=== PATIENT | female | born 1940 | race Caucasian/White ===

== ENCOUNTER 2016-05-12 06:27 | Inpatient (IN) | payer MEDICARE, OTHER ==
[~2016-05-12] VITALS: Ht 152 cm; Wt 61.8 kg
[~2016-05-12 06:27] MED LIST: AMANTADINE HCL100 M1 PO; AMLODIPINE5 MG PO; ASPIRIN81 M1 PO; AUGMENTIN 500 M1 TAB PO; CALCIUM 500500 M2 PO; CALCIUM 600600 M2 PO; CIPRO500 MG PO; CIPROFLOXACIN500 MG PO; COMBIVENT1 ARO IH; FLAGYL500 MG PO; FLONASE0.05 MG/AC NS; FOSAMAX70 MG PO; LABETALOL100 MG PO; MEDROL DOSEPAK4 MG PO; METOPROLOL25 MG PO; NORVASC5 MG PO; NYSTATIN100000 U/M PO; OMEPRAZOLE20 M2 PO; PRINIVIL20 M1 PO; PRINIVIL20 MG PO; TESSALON PERLE100 M1 PO; THYROX PO; VICODIN ES 7501 TAB PO; VITAMIN D400 I1 PO; ZITHROMAX Z-PA250 MG PO; ZOCOR10 MG PO; [UNRECOGNIZED DRUG - OTHER] PO
[2016-05-12 06:37] VITALS: BP 124/59
[2016-05-12 07:00] VITALS: BP 117/66
[2016-05-12 07:35] LABS: BASO % 0.2 % (0.0-1.0); EOS # 0.1 10*3/uL (0.0-0.4); EOS % 0.3 % (1.0-4.0); HEMATOCRIT 48.4 % (37.0-47.0); HEMOGLOBIN 16.3 g/dl (12.0-16.0); IG # 0.1 10*3/uL (0.0-0.1); LYMPH # 1.5 10*3/uL (1.3-4.4); MEAN CELL VOLUME 88.8 fl (81.0-99.0); MEAN CORPUSCULAR HGB 29.9 pg (27.0-31.0); MEAN CORPUSCULAR HGB CONC 33.7 g/dl (33.0-37.0); MEAN PLATELET VOLUME 9.6 fl (9.6-12.3); MONO # 1.1 10*3/uL (0.1-1.0); MONO % 5.2 % (3.0-9.0); NEUT # 18.3 10*3/uL (2.3-7.9); NEUT % 86.8 % (47.0-73.0); PLATELET COUNT AUTOMATED 382 10*3/uL (130-400); RED BLOOD COUNT 5.45 10*6/uL (4.10-5.10); RED CELL DISTRI WIDTH 12.9 % (0-14.5); WHITE BLOOD COUNT 21.1 10*3/uL (4.8-10.8)
[2016-05-12 07:44] LABS: PROTHROMBIN TIME 10.5 SECONDS (9.0-12.4)
[2016-05-12 07:54] LABS: ALBUMIN 3.8 gm/dl (3.1-4.5); BILIRUBIN, TOTAL 0.5 mg/dl (0.2-1.0); C-REACTIVE PROTEIN 0.54 MG/DL (0-0.3); CKMB 1.1 ng/ml (0.5-3.6); MAGNESIUM 2.4 mg/dL (1.5-2.1); POTASSIUM 5.9 mmol/L (3.5-5.1); TOTAL PROTEIN 7.4 gm/dL (6.4-8.2); TROPONIN I 0.027 ng/ml (<0.5)
[2016-05-12 08:00] VITALS: BP 111/63
[2016-05-12 12:00] VITALS: BP 114/62
[2016-05-12 12:11] LABS: CPK 35 U/L (26-192); TROPONIN I 0.022 ng/ml (<0.5)
[2016-05-12 12:12] LABS: CKMB < 0.5 ng/ml (0.5-3.6)
[2016-05-12] MEDS ORDERED: VITAMIN D1000 IU PO (12:49)
[2016-05-12 16:00] VITALS: BP 116/49
[2016-05-12 18:10] LABS: CKMB 1.1 ng/ml (0.5-3.6); TROPONIN I 0.021 ng/ml (<0.5)
[2016-05-12 20:00] VITALS: BP 106/48
[2016-05-12 21:38] LABS: BILIRUBIN NEGATIVE (NEGATIVE); BLOOD NEGATIVE (NEGATIVE); CLARITY SL CLOUDY (CLEAR); COLOR YELLOW (YELLOW); GLUCOSE NEGATIVE (NEGATIVE); KETONE NEGATIVE (NEGATIVE); LEUKO ESTERASE TRACE (NEGATIVE); NITRITE NEGATIVE (NEGATIVE); PH 5.5 (5.0-9.0); PROTEIN NEGATIVE (NEGATIVE); SPECIFIC GRAVITY 1.025 (1.005-1.030); UROBILINOGEN 0.2 E.U./dl (0.2-1.0)
[2016-05-12 21:46] LABS: BACTERIA 2+; HYALINE CAST 15-20; RBC 0-2 rbc/hpf (0-2); URINE REFLEX COMMENT YES (NO)
[2016-05-13] VITALS: BP 121/61
[2016-05-13 00:42] LABS: CKMB 1.3 ng/ml (0.5-3.6); TROPONIN I 0.022 ng/ml (<0.5)
[2016-05-13 07:33] LABS: BASO % 0.4 % (0.0-1.0); EOS # 0.1 10*3/uL (0.0-0.4); EOS % 1.5 % (1.0-4.0); LYMPH # 3.4 10*3/uL (1.3-4.4); LYMPH % 38.2 % (27.0-41.0); MEAN CELL VOLUME 91.2 fl (81.0-99.0); MEAN CORPUSCULAR HGB 29.7 pg (27.0-31.0); MEAN CORPUSCULAR HGB CONC 32.5 g/dl (33.0-37.0); MEAN PLATELET VOLUME 9.9 fl (9.6-12.3); MONO % 11.7 % (3.0-9.0); NEUT # 4.3 10*3/uL (2.3-7.9); NEUT % 47.9 % (47.0-73.0); PLATELET COUNT AUTOMATED 295 10*3/uL (130-400); RED BLOOD COUNT 4.11 10*6/uL (4.10-5.10); RED CELL DISTRI WIDTH 13.2 % (0-14.5); WHITE BLOOD COUNT 8.9 10*3/uL (4.8-10.8)
[2016-05-13 07:34] LABS: HEMATOCRIT 37.5 % (37.0-47.0); HEMOGLOBIN 12.2 g/dl (12.0-16.0)
[2016-05-13 07:42] LABS: ALBUMIN 3.2 gm/dl (3.1-4.5); ALKALINE PHOSPHATASE 54 U/L (45-117); BILIRUBIN, TOTAL 0.6 mg/dl (0.2-1.0); BUN 18 mg/dl (7-24); CARBON DIOXIDE 22 mmol/L (21-32); CHLORIDE 109 mmol/L (98-107); EST GLOM FILT AFRICAN AMERICAN > 60 ml/min; GLUCOSE 89 mg/dL (65-99); PHOSPHOROUS 2.2 mg/dL (2.5-4.9); SGOT/AST 12 IU/L (3-35); SGPT/ALT 18 U/L (12-78); SODIUM 141 mmol/L (136-145); TOTAL PROTEIN 6.3 gm/dL (6.4-8.2)
[2016-05-13 07:55] LABS: PROTHROMBIN TIME 10.6 SECONDS (9.0-12.4)
[2016-05-13 08:00] VITALS: BP 128/50
[2016-05-13 08:17] LABS: POTASSIUM 3.6 mmol/L (3.5-5.1)
[2016-05-13 12:00] VITALS: BP 127/57
[2016-05-13 16:00] VITALS: BP 125/51
[2016-05-13 20:00] VITALS: BP 133/52
[2016-05-14] VITALS: BP 143/64
[2016-05-14 06:44] LABS: BASO % 0.3 % (0.0-1.0); EOS # 0.2 10*3/uL (0.0-0.4); EOS % 3.2 % (1.0-4.0); HEMATOCRIT 33.2 % (37.0-47.0); HEMOGLOBIN 10.9 g/dl (12.0-16.0); LYMPH # 2.2 10*3/uL (1.3-4.4); LYMPH % 32.3 % (27.0-41.0); MEAN CELL VOLUME 90.7 fl (81.0-99.0); MEAN CORPUSCULAR HGB 29.8 pg (27.0-31.0); MEAN CORPUSCULAR HGB CONC 32.8 g/dl (33.0-37.0); MEAN PLATELET VOLUME 9.5 fl (9.6-12.3); MONO # 0.9 10*3/uL (0.1-1.0); MONO % 13.7 % (3.0-9.0); NEUT # 3.5 10*3/uL (2.3-7.9); NEUT % 50.1 % (47.0-73.0); PLATELET COUNT AUTOMATED 243 10*3/uL (130-400); RED BLOOD COUNT 3.66 10*6/uL (4.10-5.10); RED CELL DISTRI WIDTH 12.9 % (0-14.5); WHITE BLOOD COUNT 6.9 10*3/uL (4.8-10.8)
[2016-05-14 07:17] LABS: CARBON DIOXIDE 24 mmol/L (21-32); CHLORIDE 111 mmol/L (98-107); EST GLOM FILT AFRICAN AMERICAN > 60 ml/min; GLUCOSE 96 mg/dL (65-99); MAGNESIUM 2.3 mg/dL (1.5-2.1); PHOSPHOROUS 1.9 mg/dL (2.5-4.9); POTASSIUM 3.7 mmol/L (3.5-5.1); SODIUM 145 mmol/L (136-145)
[2016-05-14 07:27] LABS: BUN 8 mg/dl (7-24)
[2016-05-14 08:00] VITALS: BP 143/57
[2016-05-14] MEDS ORDERED: METRONIDAZOLE500 M1 PO (12:54)
[2016-05-14] MEDS ORDERED: CIPROFLOXACIN500 M4 PO (12:54)
[2016-05-14] MEDS ORDERED: ZOFRAN4 MG PO (12:59)
== END 2016-05-14 14:15 | disposition home or self-care (01) | DRG 871 ==
LOC: ED 06:27 → EDHOLD 08:37 → 4E 08:37
PROVIDERS: Emergency Medicine; Family Medicine; Internal Medicine
DX: A41.9 Sepsis, unspecified organism (principal); N17.0 Acute kidney failure with tubular necrosis; E44.1 Mild protein-calorie malnutrition; R65.20 Severe sepsis without septic shock; K52.9 Noninfective gastroenteritis and colitis, unspecified; I10 Essential (primary) hypertension; E03.9 Hypothyroidism, unspecified; K21.9 Gastro-esophageal reflux disease without esophagitis; M85.80 Other specified disorders of bone density and structure, unspecified site; M47.816 Spondylosis without myelopathy or radiculopathy, lumbar region; R73.9 Hyperglycemia, unspecified; E83.41 Hypermagnesemia; M81.0 Age-related osteoporosis without current pathological fracture; E87.5 Hyperkalemia; Z88.1 Allergy status to other antibiotic agents; Z88.8 Allergy status to other drugs, medicaments and biological substances; Z79.82 Long term (current) use of aspirin; Z79.899 Other long term (current) drug therapy; Z68.25 Body mass index [BMI] 25.0-25.9, adult; Z98.890 Other specified postprocedural states; Z83.3 Family history of diabetes mellitus; Z82.49 Family history of ischemic heart disease and other diseases of the circulatory system; Z80.0 Family history of malignant neoplasm of digestive organs; Z82.5 Family history of asthma and other chronic lower respiratory diseases

== ENCOUNTER 2016-09-20 12:06 | Inpatient (IN) | payer MEDICARE, OTHER ==
[~2016-09-20] VITALS: Ht 152.4 cm; Wt 63.2 kg
--- NOTE | ~2016-09-20 | CON ---
[place], [place] REPORT OF CONSULTATION NAME: CARLY ARIAS [facility] #: [id number] UNIT #: [id number] ROOM: 520 DOCTOR: MARGARET LAYNEJACKSON BIRTHDATE: [birth year] DOS: 09/21/2016 HISTORY OF PRESENT ILLNESS: A 76-year-old patient who has presented with chief complaint of abdominal pain, cramps, history of colitis, abnormal CT scan of the abdomen which reveals extensive infectious or inflammatory ileitis. Lactic acid was 1.4. CBC: White blood cell was 18, H and H of 16 and 46, neutrophils 82. ileus. Comprehensive metabolic panel, GFR greater than 60. Electrolytes borderline normal. Liver function tests normal. C-reactive protein is slightly elevated at 0.79. CT scan of the chest, no acute process. Troponin was normal. Hemoglobin A1c 5.8. PAST MEDICAL HISTORY: Osteopenia, partial bowel obstruction, gastroesophageal reflux, degenerative joint disease, essential hypertension. PAST SURGICAL HISTORY: D and C, lens implant, cataract, hemorrhoidectomy. SOCIAL HISTORY: Nonsmoker, nonalcohol consumer. FAMILY HISTORY: Noncontributory. ALLERGIES: TO PROGESTIN, DOXYCYCLINE AND TETRACYCLINE. MEDICATIONS: List has been reviewed. REVIEW OF SYSTEMS: In general, HEENT: Denies double vision, blurred vision. RESPIRATORY: Denies shortness of breath. CARDIOVASCULAR: Denies acute chest pain. DIGESTIVE SYSTEM: Abdominal pain, cramp, diarrhea. PHYSICAL EXAMINATION: VITAL SIGNS: Stable. HEENT: Head normocephalic, nontraumatic. Mouth and buccal mucosa benign. NECK: Supple, no thyromegaly, no cervical lymphadenopathy. CHEST: Symmetric anatomy, equal expansion. No wheeze. No rhonchi. HEART: Normal sinus rhythm, no gallop, no murmur. ABDOMEN: Soft. No hepato-organomegaly. Bowel sounds present. No pulsatile mass. EXTREMITIES: No cyanosis, no pedal edema. NEUROLOGIC: Alert, oriented to time, place, person. LABORATORY DATA: Reviewed. Records reviewed. Data reviewed. IMPRESSION: Terminal ileitis, ruling out Crohn's, hypothyroidism, osteopenia, hyperglycemia, hypertension, gastroesophageal reflux disease. PLAN AND DISCUSSION: We are going to organize EGD colonoscopy and terminal ileoscopy. [place], [place] REPORT OF CONSULTATION NAME: CARLY ARIAS UNIT #: [id number] ROOM: 520 DOCTOR: MARGARET LAYNE,JACKSON BIRTHDATE: [birth year] JACKSON ORBLES MD CM:CONSTR:REPORT OF CONSULTATION 1045 09/22/16 0323 interface
--- NOTE | ~2016-09-20 | O ---
[place], [place] OPERATIVE NOTE NAME: CARLY ARIAS UNIT #: [id number] ROOM: 520 DOCTOR: JACKSON ROBLES MD BIRTHDATE: [birth year] DOS: The patient is a 76-year-old who has presented with chief complaint of abdominal pain, undergoing investigation. The patient with leukocytosis of 18,000 has been placed on Cipro and Flagyl and white blood cell has decreased and ileitis noticed. PROCEDURE: Today's procedure part of investigation is colonoscopy. PREMEDICATION: Versed and Diprivan. SCOPE: Olympus forward-viewing colonoscope 10L video. REPORT: After putting the patient in the left lateral position and after application of lubricant to the scope, the scope was introduced. Thereafter, under direct visualization, I advanced through the length of colon without difficulty. Diverticulosis scatteredly was noticed. The base of cecum explored, appendiceal orifice identified and photographed. Terminal ileum appears to be stenotic and negotiation of scope in the terminal ileum is impractical, scope was gradually withdrawn. The patient extubated, tolerated procedure well. IMPRESSION: Diverticulosis. PLAN AND DISCUSSION: We are going to continue with Cipro and Flagyl. We are going to start her on sulfasalazine 500 mg 2 tablets b.i.d. in addition to folic acid and clinically reassess. Course of antibiotics would be about 10 days on her and I am going to meanwhile organize a small bowel follow through for documentation of terminal ileitis. Diet is going to remain full liquid. Thank you very much indeed. [place], [place] OPERATIVE NOTE NAME: CARLY ARIAS UNIT #: [id number] ROOM: 520 DOCTOR: JACKSON ROBLES MD BIRTHDATE: [birth year] JACKSON ROBLES MD CM:OPRECORD:OPERATIVE NOTE 1148 11 JACKSON ROBLES MD 09/21/16 181 interface
[~2016-09-20 12:06] MED LIST changes: +CIPROFLOXACIN500 M4 PO; +METRONIDAZOLE500 M1 PO; +VITAMIN D1000 IU PO; +ZOFRAN4 MG PO
[2016-09-20 12:27] VITALS: BP 91/52
[2016-09-20 12:46] VITALS: BP 144/70
[2016-09-20 12:55] LABS: BASO # 0.1 10*3/uL (0.0-0.1); BASO % 0.3 % (0.0-1.0); EOS # 0.2 10*3/uL (0.0-0.4); EOS % 1.1 % (1.0-4.0); HEMATOCRIT 46.9 % (37.0-47.0); IG # 0.1 10*3/uL (0.0-0.1); LYMPH # 1.9 10*3/uL (1.3-4.4); LYMPH % 10.4 % (27.0-41.0); MEAN CORPUSCULAR HGB 29.7 pg (27.0-31.0); MEAN CORPUSCULAR HGB CONC 34.1 g/dl (33.0-37.0); MEAN PLATELET VOLUME 9.4 fl (9.6-12.3); MONO % 5.2 % (3.0-9.0); NEUT # 15.3 10*3/uL (2.3-7.9); NEUT % 82.7 % (47.0-73.0); PLATELET COUNT AUTOMATED 338 10*3/uL (130-400); RED BLOOD COUNT 5.39 10*6/uL (4.10-5.10); RED CELL DISTRI WIDTH 12.5 % (0-14.5); WHITE BLOOD COUNT 18.4 10*3/uL (4.8-10.8)
[2016-09-20 13:03] LABS: PROTHROMBIN TIME 10.2 SECONDS (9.0-12.4)
[2016-09-20 13:11] LABS: ALBUMIN 3.7 gm/dl (3.1-4.5); ALKALINE PHOSPHATASE 92 U/L (45-117); BILIRUBIN, TOTAL 0.4 mg/dl (0.2-1.0); BUN 22 mg/dl (7-24); C-REACTIVE PROTEIN 0.79 MG/DL (0-0.3); CARBON DIOXIDE 20 mmol/L (21-32); CHLORIDE 110 mmol/L (98-107); CPK 49 U/L (26-192); EST GLOM FILT AFRICAN AMERICAN > 60 ml/min; GLUCOSE 146 mg/dL (65-99); MAGNESIUM 2.2 mg/dL (1.5-2.1); POTASSIUM 5.3 mmol/L (3.5-5.1); SGOT/AST 26 IU/L (3-35); SGPT/ALT 27 U/L (12-78); SODIUM 140 mmol/L (136-145); TOTAL PROTEIN 7.3 gm/dL (6.4-8.2)
[2016-09-20 13:15] LABS: CKMB < 0.5 ng/ml (0.5-3.6)
[2016-09-20 13:30] VITALS: BP 124/61
[2016-09-20 14:47] VITALS: BP 131/53
[2016-09-20 16:00] VITALS: BP 119/57
[2016-09-20] MEDS ORDERED: FOSAMAX70 M1 PO (16:49)
[2016-09-20] MEDS ORDERED: CALCIUM 1,0001 EACH PO (16:50)
[2016-09-20 20:00] VITALS: BP 124/62
[2016-09-21] VITALS (9 sets, daily range): BP systolic 102–143; BP diastolic 48–77
[2016-09-21 06:43] LABS: BASO % 0.3 % (0.0-1.0); EOS # 0.1 10*3/uL (0.0-0.4); EOS % 0.7 % (1.0-4.0); LYMPH # 2.2 10*3/uL (1.3-4.4); LYMPH % 18.4 % (27.0-41.0); MEAN CELL VOLUME 88.7 fl (81.0-99.0); MEAN CORPUSCULAR HGB 30.2 pg (27.0-31.0); MEAN PLATELET VOLUME 9.7 fl (9.6-12.3); MONO # 1.1 10*3/uL (0.1-1.0); NEUT # 8.4 10*3/uL (2.3-7.9); NEUT % 71.4 % (47.0-73.0); PLATELET COUNT AUTOMATED 255 10*3/uL (130-400); RED BLOOD COUNT 3.98 10*6/uL (4.10-5.10); RED CELL DISTRI WIDTH 12.5 % (0-14.5); WHITE BLOOD COUNT 11.7 10*3/uL (4.8-10.8)
[2016-09-21 06:45] LABS: HEMATOCRIT 35.3 % (37.0-47.0)
[2016-09-21 07:30] LABS: CHLORIDE 110 mmol/L (98-107); SODIUM 140 mmol/L (136-145)
[2016-09-21 07:32] LABS: FOLIC ACID 19.4 ng/mL (>5.38); VITAMIN D, 25-HYDROXY 38.3 ng/mL (30-100)
[2016-09-21 07:44] LABS: HEMOGLOBIN A1c 5.8 % (4.8-5.6)
[2016-09-21 07:49] LABS: CARBON DIOXIDE 21 mmol/L (21-32); CHOLESTEROL 181 mg/dL (<200); EST GLOM FILT AFRICAN AMERICAN > 60 ml/min; FREE T4 1.44 ng/dl (0.76-1.46); GLUCOSE 110 mg/dL (65-99); HDL CHOLESTEROL 56 mg/dl (40-60); LDL CHOLESTEROL 102 mg/dL (9-159); THYROID STIM HORMONE (HS) 0.048 uIU/ml (0.358-4.75); TRIGLYCERIDES 115 mg/dl (<150); VLDL CHOLESTEROL 23 mg/dL (6-40)
[2016-09-21 07:50] LABS: BUN 12 mg/dl (7-24); POTASSIUM 3.8 mmol/L (3.5-5.1)
[2016-09-22] VITALS: BP 119/58
[2016-09-22 06:20] LABS: BASO % 0.3 % (0.0-1.0); EOS # 0.2 10*3/uL (0.0-0.4); HEMATOCRIT 31.9 % (37.0-47.0); HEMOGLOBIN 10.6 g/dl (12.0-16.0); LYMPH # 1.9 10*3/uL (1.3-4.4); LYMPH % 30.2 % (27.0-41.0); MEAN CELL VOLUME 88.6 fl (81.0-99.0); MEAN CORPUSCULAR HGB 29.4 pg (27.0-31.0); MEAN CORPUSCULAR HGB CONC 33.2 g/dl (33.0-37.0); MEAN PLATELET VOLUME 9.8 fl (9.6-12.3); MONO # 0.8 10*3/uL (0.1-1.0); MONO % 12.3 % (3.0-9.0); NEUT # 3.5 10*3/uL (2.3-7.9); PLATELET COUNT AUTOMATED 212 10*3/uL (130-400); RED CELL DISTRI WIDTH 12.5 % (0-14.5); WHITE BLOOD COUNT 6.4 10*3/uL (4.8-10.8)
[2016-09-22 08:00] VITALS: BP 118/91
[2016-09-22 12:00] VITALS: BP 123/59
[2016-09-22 16:00] VITALS: BP 119/68
[2016-09-22 20:00] VITALS: BP 137/56
[2016-09-23] VITALS: BP 127/58
[2016-09-23 06:06] LABS: BASO % 0.4 % (0.0-1.0); EOS # 0.3 10*3/uL (0.0-0.4); EOS % 4.4 % (1.0-4.0); HEMATOCRIT 31.7 % (37.0-47.0); HEMOGLOBIN 10.7 g/dl (12.0-16.0); LYMPH # 1.9 10*3/uL (1.3-4.4); LYMPH % 26.3 % (27.0-41.0); MEAN CELL VOLUME 87.6 fl (81.0-99.0); MEAN CORPUSCULAR HGB 29.6 pg (27.0-31.0); MEAN CORPUSCULAR HGB CONC 33.8 g/dl (33.0-37.0); MEAN PLATELET VOLUME 9.6 fl (9.6-12.3); MONO # 0.8 10*3/uL (0.1-1.0); MONO % 11.3 % (3.0-9.0); NEUT # 4.1 10*3/uL (2.3-7.9); NEUT % 57.3 % (47.0-73.0); PLATELET COUNT AUTOMATED 223 10*3/uL (130-400); RED BLOOD COUNT 3.62 10*6/uL (4.10-5.10); RED CELL DISTRI WIDTH 12.2 % (0-14.5); WHITE BLOOD COUNT 7.2 10*3/uL (4.8-10.8)
[2016-09-23 08:00] VITALS: BP 131/53
[2016-09-23 12:00] VITALS: BP 118/48
[2016-09-23 16:00] VITALS: BP 137/57
[2016-09-23 20:00] VITALS: BP 131/46
[2016-09-24] VITALS: BP 124/97
[2016-09-24 06:32] LABS: EST GLOM FILT AFRICAN AMERICAN > 60 ml/min
[2016-09-24 08:00] VITALS: BP 129/49
[2016-09-24 12:00] VITALS: BP 120/49
[2016-09-24 16:00] VITALS: BP 138/68
[2016-09-24 20:00] VITALS: BP 122/55
[2016-09-25 00:55] VITALS: BP 141/59
[2016-09-25 06:21] LABS: HEMATOCRIT 32.8 % (37.0-47.0); HEMOGLOBIN 11.2 g/dl (12.0-16.0); LYMPH % 10.2 % (27.0-41.0); MEAN CELL VOLUME 86.1 fl (81.0-99.0); MEAN CORPUSCULAR HGB 29.4 pg (27.0-31.0); MEAN CORPUSCULAR HGB CONC 34.1 g/dl (33.0-37.0); MEAN PLATELET VOLUME 9.8 fl (9.6-12.3); MONO # 0.5 10*3/uL (0.1-1.0); MONO % 5.4 % (3.0-9.0); PLATELET COUNT AUTOMATED 257 10*3/uL (130-400); RED BLOOD COUNT 3.81 10*6/uL (4.10-5.10); RED CELL DISTRI WIDTH 12.4 % (0-14.5); WHITE BLOOD COUNT 9.5 10*3/uL (4.8-10.8)
[2016-09-25 06:32] LABS: BUN 19 mg/dl (7-24); CARBON DIOXIDE 27 mmol/L (21-32); CHLORIDE 106 mmol/L (98-107); EST GLOM FILT AFRICAN AMERICAN > 60 ml/min; GLUCOSE 172 mg/dL (65-99); POTASSIUM 3.7 mmol/L (3.5-5.1); SODIUM 143 mmol/L (136-145)
[2016-09-25 08:00] VITALS: BP 122/64
[2016-09-25 12:00] VITALS: BP 142/59
[2016-09-25] MEDS ORDERED: FLAGYL500 MG PO (15:27)
[2016-09-25] MEDS ORDERED: CIPRO500 MG PO (15:27)
[2016-09-25 16:00] VITALS: BP 124/48
== END 2016-09-25 19:13 | disposition home or self-care (01) | DRG 872 ==
LOC: ED 12:06 → 5E 13:41 → EDHOLD 13:41 → 5E 13:58
PROVIDERS: Emergency Medicine; Internal Medicine; Internal Medicine Hospice and Palliative Medicine
PROC: 0DJD8ZZ Inspection of Lower Intestinal Tract, Via Natural or Artificial Opening Endoscopic (ICD-10-PCS; principal; 2016-09-20)
DX: A41.9 Sepsis, unspecified organism (principal); E86.0 Dehydration; E87.5 Hyperkalemia; E83.41 Hypermagnesemia; K52.9 Noninfective gastroenteritis and colitis, unspecified; R73.9 Hyperglycemia, unspecified; E03.9 Hypothyroidism, unspecified; I10 Essential (primary) hypertension; M85.89 Other specified disorders of bone density and structure, multiple sites; M47.816 Spondylosis without myelopathy or radiculopathy, lumbar region; Z96.1 Presence of intraocular lens; K21.9 Gastro-esophageal reflux disease without esophagitis; R73.02 Impaired glucose tolerance (oral); E83.51 Hypocalcemia; K57.90 Diverticulosis of intestine, part unspecified, without perforation or abscess without bleeding; Z98.42 Cataract extraction status, left eye; Z98.41 Cataract extraction status, right eye; Z80.0 Family history of malignant neoplasm of digestive organs; Z82.5 Family history of asthma and other chronic lower respiratory diseases; Z88.1 Allergy status to other antibiotic agents; Z88.8 Allergy status to other drugs, medicaments and biological substances; Z79.82 Long term (current) use of aspirin; Z79.899 Other long term (current) drug therapy

== ENCOUNTER 2016-10-31 15:18 | Emergency (ER) | payer MEDICARE ==
[~2016-10-31] VITALS: Ht 152.4 cm; Wt 60.8 kg
[~2016-10-31 15:18] MED LIST changes: +CALCIUM 1,0001 EACH PO; +FOSAMAX70 M1 PO
[2016-10-31 15:23] VITALS: BP 140/76
[2016-10-31] MEDS ORDERED: HYDROCODONE BIT1 T11 PO (17:23)
== END 2016-10-31 17:33 | disposition home or self-care (01) ==
LOC: ED 15:18
DX: S20.212A Contusion of left front wall of thorax, initial encounter (principal); Z79.82 Long term (current) use of aspirin; Z88.1 Allergy status to other antibiotic agents; Z88.8 Allergy status to other drugs, medicaments and biological substances; Z79.899 Other long term (current) drug therapy; W22.8XXA Striking against or struck by other objects, initial encounter; Y93.I9 Activity, other involving external motion; Y92.831 Amusement park as the place of occurrence of the external cause; Y99.9 Unspecified external cause status

== ENCOUNTER 2016-11-20 14:42 | Emergency (ER) | payer MEDICARE ==
[~2016-11-20] VITALS: Ht 152.4 cm; Wt 59.9 kg
[~2016-11-20 14:42] MED LIST changes: +HYDROCODONE BIT1 T11 PO
[2016-11-20 15:11] LABS: BASO % 0.4 % (0.0-1.0); EOS # 0.2 10*3/uL (0.0-0.4); EOS % 1.6 % (1.0-4.0); HEMOGLOBIN 13.7 g/dl (12.0-16.0); LYMPH # 2.7 10*3/uL (1.3-4.4); LYMPH % 23.9 % (27.0-41.0); MEAN CELL VOLUME 87.5 fl (81.0-99.0); MEAN CORPUSCULAR HGB CONC 34.3 g/dl (33.0-37.0); MEAN PLATELET VOLUME 9.3 fl (9.6-12.3); MONO # 0.8 10*3/uL (0.1-1.0); MONO % 7.5 % (3.0-9.0); NEUT # 7.4 10*3/uL (2.3-7.9); NEUT % 66.3 % (47.0-73.0); PLATELET COUNT AUTOMATED 268 10*3/uL (130-400); RED BLOOD COUNT 4.57 10*6/uL (4.10-5.10); RED CELL DISTRI WIDTH 12.5 % (0-14.5); WHITE BLOOD COUNT 11.2 10*3/uL (4.8-10.8)
[2016-11-20 15:28] LABS: ALBUMIN 3.4 gm/dl (3.1-4.5); ALKALINE PHOSPHATASE 99 U/L (45-117); BILIRUBIN, TOTAL 0.4 mg/dl (0.2-1.0); BUN 17 mg/dl (7-24); CARBON DIOXIDE 24 mmol/L (21-32); CHLORIDE 106 mmol/L (98-107); EST GLOM FILT AFRICAN AMERICAN > 60 ml/min; GLUCOSE 95 mg/dL (65-99); POTASSIUM 4.6 mmol/L (3.5-5.1); SGOT/AST 20 IU/L (3-35); SGPT/ALT 19 U/L (12-78); SODIUM 138 mmol/L (136-145); TOTAL PROTEIN 6.8 gm/dL (6.4-8.2)
[2016-11-20] MEDS ORDERED: ZOFRAN ODT4 MG SL (17:17)
[2016-11-20 17:37] VITALS: BP 124/70
== END 2016-11-20 17:38 | disposition home or self-care (01) ==
LOC: ED 14:42
PROVIDERS: Registered Nurse
DX: K52.9 Noninfective gastroenteritis and colitis, unspecified (principal); I10 Essential (primary) hypertension; Z88.1 Allergy status to other antibiotic agents; Z88.8 Allergy status to other drugs, medicaments and biological substances; Z79.899 Other long term (current) drug therapy; Z79.82 Long term (current) use of aspirin

== ENCOUNTER → 2016-12-20 | Outpatient (CLI) | payer MEDICARE ==
[~2016-12-20] MED LIST changes: +ZOFRAN ODT4 MG SL
== END | disposition home or self-care (01) ==
LOC: CARD 14:46
DX: I48.91 Unspecified atrial fibrillation (principal); I48.0 Paroxysmal atrial fibrillation

== ENCOUNTER 2017-04-27 11:17 | Inpatient (IN) | payer MEDICARE ==
[~2017-04-27] VITALS: Ht 152.4 cm; Wt 63.1 kg
[2017-04-27] VITALS (7 sets, daily range): BP systolic 113–144; BP diastolic 39–56
[~2017-04-27 11:17] MED LIST changes: -CALCIUM 1,0001 EACH PO; +VITAMIN D-32000 UNI1 PO
[2017-04-27 12:31] LABS: BASO % 0.2 % (0.0-1.0); EOS # 0.1 10*3/uL (0.0-0.4); EOS % 0.4 % (1.0-4.0); HEMATOCRIT 44.6 % (37.0-47.0); HEMOGLOBIN 15.6 g/dl (12.0-16.0); LYMPH # 1.5 10*3/uL (1.3-4.4); LYMPH % 7.9 % (27.0-41.0); MEAN CELL VOLUME 85.1 fl (81.0-99.0); MEAN CORPUSCULAR HGB 29.8 pg (27.0-31.0); MEAN PLATELET VOLUME 9.7 fl (9.6-12.3); MONO # 0.6 10*3/uL (0.1-1.0); MONO % 3.1 % (3.0-9.0); NEUT # 16.2 10*3/uL (2.3-7.9); PLATELET COUNT AUTOMATED 313 10*3/uL (130-400); RED BLOOD COUNT 5.24 10*6/uL (4.10-5.10); RED CELL DISTRI WIDTH 12.1 % (0-14.5); WHITE BLOOD COUNT 18.4 10*3/uL (4.8-10.8)
[2017-04-27 12:38] LABS: ACT PARTIAL THROMBO TIME 22.3 SECONDS (20.8-31.5)
[2017-04-27 12:48] LABS: ALBUMIN 3.5 gm/dl (3.1-4.5); ALKALINE PHOSPHATASE 97 U/L (45-117); BUN 26 mg/dl (7-24); CHLORIDE 102 mmol/L (98-107); LIPASE 114 U/L (73-393); POTASSIUM 4.5 mmol/L (3.5-5.1); SGOT/AST 22 IU/L (3-35); SGPT/ALT 24 U/L (12-78); SODIUM 136 mmol/L (136-145); TOTAL PROTEIN 7.4 gm/dL (6.4-8.2)
[2017-04-27 13:03] LABS: TROPONIN I 0.066 ng/ml (<0.045)
[2017-04-27 14:06] LABS: BILIRUBIN NEGATIVE (NEGATIVE); BLOOD NEGATIVE (NEGATIVE); CLARITY SL CLOUDY (CLEAR); COLOR YELLOW (YELLOW); GLUCOSE NEGATIVE (NEGATIVE); KETONE NEGATIVE (NEGATIVE); LEUKO ESTERASE NEGATIVE (NEGATIVE); NITRITE NEGATIVE (NEGATIVE); UROBILINOGEN 0.2 E.U./dl (0.2-1.0)
[2017-04-27 14:15] LABS: BACTERIA TRACE; HYALINE CAST 51-100; MUCOUS 1+
[2017-04-27] MEDS ORDERED: SYNTHROID137 MCG PO (16:48)
[2017-04-27] MEDS ORDERED: METOPROLOL SUCC50 M1 PO (16:49)
[2017-04-27] MEDS ORDERED: RA FISH OIL 1,1 EAC2 PO (18:06)
[2017-04-27] MEDS ORDERED: LIPITOR10 MG PO (18:06)
[2017-04-27] MEDS ORDERED: XARE15TA PO (18:14)
[2017-04-28] VITALS: BP 127/47
[2017-04-28 05:50] LABS: BUN 18 mg/dl (7-24); CHLORIDE 105 mmol/L (98-107); CHOLESTEROL 141 mg/dL (<200); CREATININE 0.75 mg/dL (0.55-1.02); SODIUM 140 mmol/L (136-145); TRIGLYCERIDES 145 mg/dl (<150); VLDL CHOLESTEROL 29 mg/dL (6-40)
[2017-04-28 05:52] LABS: HDL CHOLESTEROL 57 mg/dl (40-60); LDL CHOLESTEROL 55 mg/dL (9-159)
[2017-04-28 05:53] LABS: POTASSIUM 3.4 mmol/L (3.5-5.1)
[2017-04-28 05:56] LABS: BASO % 0.3 % (0.0-1.0); EOS # 0.2 10*3/uL (0.0-0.4); EOS % 2.3 % (1.0-4.0); LYMPH # 2.2 10*3/uL (1.3-4.4); MEAN CELL VOLUME 87.9 fl (81.0-99.0); MEAN CORPUSCULAR HGB 30.2 pg (27.0-31.0); MEAN CORPUSCULAR HGB CONC 34.3 g/dl (33.0-37.0); MEAN PLATELET VOLUME 9.5 fl (9.6-12.3); MONO # 1.1 10*3/uL (0.1-1.0); NEUT % 66.1 % (47.0-73.0); PLATELET COUNT AUTOMATED 232 10*3/uL (130-400); RED BLOOD COUNT 3.88 10*6/uL (4.10-5.10); RED CELL DISTRI WIDTH 12.4 % (0-14.5); TROPONIN I 0.063 ng/ml (<0.045); WHITE BLOOD COUNT 10.5 10*3/uL (4.8-10.8)
[2017-04-28 05:58] LABS: HEMATOCRIT 34.1 % (37.0-47.0); HEMOGLOBIN 11.7 g/dl (12.0-16.0); THYROID STIM HORMONE (HS) 0.031 uIU/ml (0.358-4.75)
[2017-04-28 08:00] VITALS: BP 102/48
[2017-04-28] MEDS ORDERED: VITAMIN D-32000 UNI1 PO (11:31)
[2017-04-28 12:00] VITALS: BP 100/42
[2017-04-28] MEDS ORDERED: HYDR25T PO (12:38)
[2017-04-28 16:00] VITALS: BP 119/42
[2017-04-28 20:00] VITALS: BP 123/55
[2017-04-29] VITALS: BP 126/50
[2017-04-29 06:52] LABS: BASO % 0.5 % (0.0-1.0); EOS # 0.4 10*3/uL (0.0-0.4); EOS % 4.6 % (1.0-4.0); HEMATOCRIT 34.1 % (37.0-47.0); HEMOGLOBIN 11.4 g/dl (12.0-16.0); LYMPH # 2.4 10*3/uL (1.3-4.4); LYMPH % 27.9 % (27.0-41.0); MEAN CELL VOLUME 87.9 fl (81.0-99.0); MEAN CORPUSCULAR HGB 29.4 pg (27.0-31.0); MEAN CORPUSCULAR HGB CONC 33.4 g/dl (33.0-37.0); MEAN PLATELET VOLUME 9.9 fl (9.6-12.3); MONO # 0.9 10*3/uL (0.1-1.0); MONO % 10.2 % (3.0-9.0); NEUT # 4.9 10*3/uL (2.3-7.9); NEUT % 56.7 % (47.0-73.0); PLATELET COUNT AUTOMATED 220 10*3/uL (130-400); RED BLOOD COUNT 3.88 10*6/uL (4.10-5.10); RED CELL DISTRI WIDTH 12.4 % (0-14.5); WHITE BLOOD COUNT 8.6 10*3/uL (4.8-10.8)
[2017-04-29 06:56] LABS: BUN 11 mg/dl (7-24); CHLORIDE 107 mmol/L (98-107); CREATININE 0.67 mg/dL (0.55-1.02); PHOSPHOROUS 2.2 mg/dL (2.5-4.9); SODIUM 140 mmol/L (136-145)
[2017-04-29 08:00] VITALS: BP 112/38
[2017-04-29 12:00] VITALS: BP 97/38
[2017-04-29] MEDS ORDERED: FLAGYL500 MG PO (13:27)
[2017-04-29] MEDS ORDERED: ZOFRAN4 MG PO (13:27)
[2017-04-29] MEDS ORDERED: CIPRO500 MG PO (13:27)
== END 2017-04-29 14:25 | disposition home or self-care (01) | DRG 392 ==
LOC: ED 11:17 → EDHOLD 14:33 → 4E 14:48
PROVIDERS: Emergency Medicine; Student in an Organized Health Care Education/Training Program
DX: K52.9 Noninfective gastroenteritis and colitis, unspecified (principal); E83.41 Hypermagnesemia; E86.0 Dehydration; I48.0 Paroxysmal atrial fibrillation; I10 Essential (primary) hypertension; K21.9 Gastro-esophageal reflux disease without esophagitis; M19.90 Unspecified osteoarthritis, unspecified site; M47.9 Spondylosis, unspecified; M85.80 Other specified disorders of bone density and structure, unspecified site; Z98.42 Cataract extraction status, left eye; Z98.41 Cataract extraction status, right eye; Z80.0 Family history of malignant neoplasm of digestive organs; Z88.2 Allergy status to sulfonamides; Z88.1 Allergy status to other antibiotic agents; Z83.6 Family history of other diseases of the respiratory system; Z83.3 Family history of diabetes mellitus; Z82.49 Family history of ischemic heart disease and other diseases of the circulatory system; Z79.82 Long term (current) use of aspirin; Z79.899 Other long term (current) drug therapy; Z72.89 Other problems related to lifestyle

== ENCOUNTER → 2017-05-09 | Outpatient (CLI) | payer MEDICARE ==
[~2017-05-09] MED LIST changes: +HYDR25T PO; +LIPITOR10 MG PO; +METOPROLOL SUCC50 M1 PO; +RA FISH OIL 1,1 EAC2 PO; +SYNTHROID137 MCG PO; +XARE15TA PO
== END | disposition home or self-care (01) ==
LOC: MAMMO 08:00
DX: Z12.31 Encounter for screening mammogram for malignant neoplasm of breast (principal); Z13.820 Encounter for screening for osteoporosis; M81.0 Age-related osteoporosis without current pathological fracture; N95.9 Unspecified menopausal and perimenopausal disorder; Z82.62 Family history of osteoporosis

== ENCOUNTER 2017-10-09 20:53 | Inpatient (IN) | payer MEDICARE ==
[~2017-10-09] VITALS: Ht 152.4 cm; Wt 62.4 kg
[2017-10-09] MEDS ORDERED: METOPROLOL SUCC25 M2 PO (21:16)
[2017-10-09] MEDS ORDERED: LEVOTHYROXINE137 MCG PO (21:17)
[2017-10-09 21:25] LABS: BASO % 0.4 % (0.0-1.0); EOS # 0.4 10*3/uL (0.0-0.4); EOS % 4.2 % (1.0-4.0); HEMATOCRIT 36.4 % (37.0-47.0); HEMOGLOBIN 12.5 g/dl (12.0-16.0); MEAN CELL VOLUME 87.7 fl (81.0-99.0); MEAN CORPUSCULAR HGB 30.1 pg (27.0-31.0); MEAN CORPUSCULAR HGB CONC 34.3 g/dl (33.0-37.0); MEAN PLATELET VOLUME 9.6 fl (9.6-12.3); MONO # 1.2 10*3/uL (0.1-1.0); MONO % 12.8 % (3.0-9.0); NEUT # 4.5 10*3/uL (2.3-7.9); NEUT % 49.4 % (47.0-73.0); PLATELET COUNT AUTOMATED 236 10*3/uL (130-400); RED BLOOD COUNT 4.15 10*6/uL (4.10-5.10); RED CELL DISTRI WIDTH 12.4 % (0-14.5)
[2017-10-09] MEDS ORDERED: ALENDRONATE SOD70 M1 PO (21:26)
[2017-10-09 21:37] LABS: ACT PARTIAL THROMBO TIME 25.7 SECONDS (20.8-31.5)
[2017-10-09 21:43] LABS: ALBUMIN 3.7 gm/dl (3.1-4.5); ALKALINE PHOSPHATASE 99 U/L (45-117); BUN 11 mg/dl (7-24); CHLORIDE 106 mmol/L (98-107); POTASSIUM 3.9 mmol/L (3.5-5.1); SGOT/AST 27 IU/L (3-35); SGPT/ALT 27 U/L (12-78); SODIUM 138 mmol/L (136-145); TOTAL PROTEIN 7.6 gm/dL (6.4-8.2)
[2017-10-09 21:46] LABS: TROPONIN I 0.049 ng/ml (<0.045)
[2017-10-09 22:22] LABS: BILIRUBIN NEGATIVE (NEGATIVE); BLOOD NEGATIVE (NEGATIVE); CLARITY CLEAR (CLEAR); COLOR YELLOW (YELLOW); GLUCOSE NEGATIVE (NEGATIVE); KETONE NEGATIVE (NEGATIVE); LEUKO ESTERASE NEGATIVE (NEGATIVE); NITRITE NEGATIVE (NEGATIVE); SPECIFIC GRAVITY <= 1.005 (1.005-1.030); UROBILINOGEN 0.2 E.U./dl (0.2-1.0)
[2017-10-09 22:29] LABS: WBC 0-2 wbc/hpf (0-5)
[2017-10-09 23:00] VITALS: BP 154/51
[2017-10-10 00:05] VITALS: BP 140/64
[2017-10-10 00:25] VITALS: BP 162/50
[2017-10-10 02:00] VITALS: BP 162/50
[2017-10-10 06:15] LABS: BASO # 0.1 10*3/uL (0.0-0.1); BASO % 0.7 % (0.0-1.0); EOS # 0.4 10*3/uL (0.0-0.4); EOS % 5.6 % (1.0-4.0); HEMOGLOBIN 12.2 g/dl (12.0-16.0); LYMPH # 3.2 10*3/uL (1.3-4.4); LYMPH % 41.2 % (27.0-41.0); MEAN CORPUSCULAR HGB 29.8 pg (27.0-31.0); MEAN CORPUSCULAR HGB CONC 33.9 g/dl (33.0-37.0); MEAN PLATELET VOLUME 9.9 fl (9.6-12.3); MONO # 1.1 10*3/uL (0.1-1.0); MONO % 14.4 % (3.0-9.0); NEUT # 2.9 10*3/uL (2.3-7.9); PLATELET COUNT AUTOMATED 229 10*3/uL (130-400); RED BLOOD COUNT 4.09 10*6/uL (4.10-5.10); RED CELL DISTRI WIDTH 12.4 % (0-14.5); WHITE BLOOD COUNT 7.6 10*3/uL (4.8-10.8)
[2017-10-10 06:35] LABS: BUN 15 mg/dl (7-24); CHLORIDE 103 mmol/L (98-107); CHOLESTEROL 197 mg/dL (<200); CREATININE 0.87 mg/dL (0.55-1.02); HDL CHOLESTEROL 47 mg/dl (40-60); LDL CHOLESTEROL 108 mg/dL (9-159); PHOSPHOROUS 3.8 mg/dL (2.5-4.9); POTASSIUM 3.8 mmol/L (3.5-5.1); SODIUM 140 mmol/L (136-145); TRIGLYCERIDES 209 mg/dl (<150); VLDL CHOLESTEROL 42 mg/dL (6-40)
[2017-10-10 06:42] LABS: THYROID STIM HORMONE (HS) 0.005 uIU/ml (0.358-4.75)
[2017-10-10 07:43] LABS: VITAMIN D, 25-HYDROXY 39.9 ng/mL (30-100)
[2017-10-10 08:00] VITALS: BP 156/53
[2017-10-10] MEDS ORDERED: BETAMETHASONE DIPROPIONATE 0.05% T (10:35)
[2017-10-10 12:00] VITALS: BP 115/49
== END 2017-10-10 15:31 | disposition home or self-care (01) | DRG 607 ==
LOC: ED 20:53 → 5E 22:58 → EDHOLD 22:58 → 5E 23:54
PROVIDERS: Internal Medicine Nephrology; Physician Assistant
DX: L25.9 Unspecified contact dermatitis, unspecified cause (principal); I48.0 Paroxysmal atrial fibrillation; I11.9 Hypertensive heart disease without heart failure; E83.41 Hypermagnesemia; R21 Rash and other nonspecific skin eruption; K21.9 Gastro-esophageal reflux disease without esophagitis; E78.5 Hyperlipidemia, unspecified; R00.1 Bradycardia, unspecified; R73.9 Hyperglycemia, unspecified; R74.8 Abnormal levels of other serum enzymes; E66.3 Overweight; M47.816 Spondylosis without myelopathy or radiculopathy, lumbar region; R60.9 Edema, unspecified; Z96.1 Presence of intraocular lens; Z88.2 Allergy status to sulfonamides; Z88.8 Allergy status to other drugs, medicaments and biological substances; Z79.899 Other long term (current) drug therapy; Z90.89 Acquired absence of other organs; Z98.42 Cataract extraction status, left eye; Z98.41 Cataract extraction status, right eye; Z83.3 Family history of diabetes mellitus; Z82.49 Family history of ischemic heart disease and other diseases of the circulatory system; Z80.0 Family history of malignant neoplasm of digestive organs; Z83.6 Family history of other diseases of the respiratory system; Z84.1 Family history of disorders of kidney and ureter; Z68.26 Body mass index [BMI] 26.0-26.9, adult

== ENCOUNTER 2018-02-04 10:58 | Emergency (ER) | payer MEDICARE ==
[~2018-02-04] VITALS: Ht 152.4 cm; Wt 61.7 kg
[~2018-02-04 10:58] MED LIST changes: +ALENDRONATE SOD70 M1 PO; +BETAMETHASONE DIPROPIONATE 0.05% T; +LEVOTHYROXINE137 MCG PO; +METOPROLOL SUCC25 M2 PO
[2018-02-04 11:28] LABS: BASO % 0.5 % (0.0-1.0); EOS # 0.4 10*3/uL (0.0-0.4); EOS % 4.6 % (1.0-4.0); HEMATOCRIT 40.1 % (37.0-47.0); HEMOGLOBIN 13.7 g/dl (12.0-16.0); LYMPH # 2.3 10*3/uL (1.3-4.4); LYMPH % 27.1 % (27.0-41.0); MEAN CELL VOLUME 88.3 fl (81.0-99.0); MEAN CORPUSCULAR HGB 30.2 pg (27.0-31.0); MEAN CORPUSCULAR HGB CONC 34.2 g/dl (33.0-37.0); MEAN PLATELET VOLUME 9.3 fl (9.6-12.3); MONO # 0.8 10*3/uL (0.1-1.0); MONO % 9.6 % (3.0-9.0); NEUT % 58.1 % (47.0-73.0); PLATELET COUNT AUTOMATED 271 10*3/uL (130-400); RED BLOOD COUNT 4.54 10*6/uL (4.10-5.10); WHITE BLOOD COUNT 8.6 10*3/uL (4.8-10.8)
[2018-02-04 11:43] LABS: ALBUMIN 3.8 gm/dl (3.1-4.5); CREATININE 1.22 mg/dL (0.55-1.02); POTASSIUM 4.2 mmol/L (3.5-5.1); TOTAL PROTEIN 8.2 gm/dL (6.4-8.2)
[2018-02-04 11:46] LABS: BILIRUBIN NEGATIVE (NEGATIVE); BLOOD NEGATIVE (NEGATIVE); CLARITY CLEAR (CLEAR); COLOR STRAW (YELLOW); GLUCOSE NEGATIVE (NEGATIVE); KETONE NEGATIVE (NEGATIVE); LEUKO ESTERASE NEGATIVE (NEGATIVE); NITRITE NEGATIVE (NEGATIVE); PH 6.5 (5.0-9.0); UROBILINOGEN 0.2 E.U./dl (0.2-1.0)
[2018-02-04 12:02] LABS: WBC 0-2 wbc/hpf (0-5)
[2018-02-04 14:38] VITALS: BP 152/53
== END 2018-02-04 14:49 | disposition home or self-care (01) ==
LOC: ED 10:58
PROVIDERS: Emergency Medicine
DX: R53.1 Weakness (principal); R63.1 Polydipsia; I48.91 Unspecified atrial fibrillation; Z98.890 Other specified postprocedural states; Z79.899 Other long term (current) drug therapy; Z88.1 Allergy status to other antibiotic agents

== ENCOUNTER → 2018-03-27 | Outpatient (CLI) | payer MEDICARE | LOC: RESCLI 01:06 | DX: E03.9 Hypothyroidism, unspecified (principal); M81.0 Age-related osteoporosis without current pathological fracture; I48.0 Paroxysmal atrial fibrillation; E55.9 Vitamin D deficiency, unspecified; E78.00 Pure hypercholesterolemia, unspecified; I11.0 Hypertensive heart disease with heart failure; I50.42 Chronic combined systolic (congestive) and diastolic (congestive) heart failure; I25.10 Atherosclerotic heart disease of native coronary artery without angina pectoris; Z79.899 Other long term (current) drug therapy; Z88.8 Allergy status to other drugs, medicaments and biological substances ==

== ENCOUNTER → 2018-04-07 | Outpatient (CLI) | payer MEDICARE ==
[2018-04-07 10:52] LABS: BASO # 0.1 10*3/uL (0.0-0.1); BASO % 0.7 % (0.0-1.0); EOS # 0.3 10*3/uL (0.0-0.4); EOS % 3.8 % (1.0-4.0); HEMATOCRIT 40.6 % (37.0-47.0); HEMOGLOBIN 13.7 g/dl (12.0-16.0); LYMPH # 2.3 10*3/uL (1.3-4.4); LYMPH % 31.9 % (27.0-41.0); MEAN CELL VOLUME 91.4 fl (81.0-99.0); MEAN CORPUSCULAR HGB 30.9 pg (27.0-31.0); MEAN CORPUSCULAR HGB CONC 33.7 g/dl (33.0-37.0); MEAN PLATELET VOLUME 9.3 fl (9.6-12.3); MONO # 0.8 10*3/uL (0.1-1.0); MONO % 11.2 % (3.0-9.0); NEUT # 3.7 10*3/uL (2.3-7.9); NEUT % 52.1 % (47.0-73.0); PLATELET COUNT AUTOMATED 248 10*3/uL (130-400); RED BLOOD COUNT 4.44 10*6/uL (4.10-5.10); RED CELL DISTRI WIDTH 12.9 % (0-14.5); WHITE BLOOD COUNT 7.1 10*3/uL (4.8-10.8)
[2018-04-07 11:10] LABS: ALBUMIN 3.6 gm/dl (3.1-4.5); ALKALINE PHOSPHATASE 98 U/L (45-117); BUN 22 mg/dl (7-24); CHLORIDE 104 mmol/L (98-107); CHOLESTEROL 190 mg/dL (<200); CREATININE 1.03 mg/dL (0.55-1.02); HDL CHOLESTEROL 67 mg/dl (40-60); LDL CHOLESTEROL 95 mg/dL (9-159); POTASSIUM 4.1 mmol/L (3.5-5.1); SGOT/AST 26 IU/L (3-35); SGPT/ALT 22 U/L (12-78); SODIUM 136 mmol/L (136-145); TOTAL PROTEIN 7.5 gm/dL (6.4-8.2); TRIGLYCERIDES 142 mg/dl (<150); VLDL CHOLESTEROL 28 mg/dL (6-40)
[2018-04-07 11:33] LABS: FREE T4 1.35 ng/dl (0.76-1.46)
[2018-04-07 11:53] LABS: VITAMIN D, 25-HYDROXY 43.9 ng/mL (30-100)
== END | disposition home or self-care (01) ==
LOC: LAB 10:18
PROVIDERS: Student in an Organized Health Care Education/Training Program
DX: E03.9 Hypothyroidism, unspecified (principal); I10 Essential (primary) hypertension; E55.9 Vitamin D deficiency, unspecified; E78.00 Pure hypercholesterolemia, unspecified; Z79.899 Other long term (current) drug therapy

== ENCOUNTER → 2018-07-01 | Outpatient (CLI) | payer MEDICARE | END | disposition home or self-care (01) | LOC: RESCLI 04:30 | DX: I48.0 Paroxysmal atrial fibrillation (principal); E03.9 Hypothyroidism, unspecified; M81.0 Age-related osteoporosis without current pathological fracture; I11.0 Hypertensive heart disease with heart failure; I50.42 Chronic combined systolic (congestive) and diastolic (congestive) heart failure; E55.9 Vitamin D deficiency, unspecified; E78.00 Pure hypercholesterolemia, unspecified; I25.10 Atherosclerotic heart disease of native coronary artery without angina pectoris; E66.3 Overweight; E78.5 Hyperlipidemia, unspecified; R00.1 Bradycardia, unspecified; Z79.899 Other long term (current) drug therapy; Z79.82 Long term (current) use of aspirin; Z88.0 Allergy status to penicillin; Z88.8 Allergy status to other drugs, medicaments and biological substances ==

== ENCOUNTER → 2018-10-23 | Outpatient (CLI) | payer MEDICARE ==
[2018-10-23 11:38] LABS: BASO # 0.1 10*3/uL (0.0-0.1); BASO % 0.6 % (0.0-1.0); EOS # 0.3 10*3/uL (0.0-0.4); EOS % 3.7 % (1.0-4.0); HEMATOCRIT 37.4 % (37.0-47.0); HEMOGLOBIN 12.4 g/dl (12.0-16.0); LYMPH % 23.6 % (27.0-41.0); MEAN CELL VOLUME 93.3 fl (81.0-99.0); MEAN CORPUSCULAR HGB 30.9 pg (27.0-31.0); MEAN CORPUSCULAR HGB CONC 33.2 g/dl (33.0-37.0); MEAN PLATELET VOLUME 10.2 fl (9.6-12.3); MONO # 0.8 10*3/uL (0.1-1.0); MONO % 9.2 % (3.0-9.0); NEUT # 5.3 10*3/uL (2.3-7.9); NEUT % 62.7 % (47.0-73.0); PLATELET COUNT AUTOMATED 241 10*3/uL (130-400); RED BLOOD COUNT 4.01 10*6/uL (4.10-5.10); RED CELL DISTRI WIDTH 12.5 % (0-14.5); WHITE BLOOD COUNT 8.5 10*3/uL (4.8-10.8)
[2018-10-23 11:58] LABS: ALBUMIN 3.7 gm/dl (3.1-4.5); ALKALINE PHOSPHATASE 101 U/L (45-117); BUN 20 mg/dl (7-24); CHLORIDE 106 mmol/L (98-107); CHOLESTEROL 174 mg/dL (<200); CREATININE 1.01 mg/dL (0.55-1.02); HDL CHOLESTEROL 67 mg/dl (40-60); LDL CHOLESTEROL 79 mg/dL (9-159); POTASSIUM 3.9 mmol/L (3.5-5.1); SGOT/AST 20 IU/L (3-35); SGPT/ALT 20 U/L (12-78); SODIUM 141 mmol/L (136-145); TOTAL PROTEIN 7.5 gm/dL (6.4-8.2); TRIGLYCERIDES 140 mg/dl (<150); VLDL CHOLESTEROL 28 mg/dL (6-40)
[2018-10-23 12:22] LABS: FREE T4 1.41 ng/dl (0.76-1.46)
[2018-10-23 12:48] LABS: VITAMIN D, 25-HYDROXY 39.3 ng/mL (30-100)
== END | disposition home or self-care (01) ==
LOC: RESCLI 01:17
PROVIDERS: Internal Medicine Nephrology
DX: E03.9 Hypothyroidism, unspecified (principal); M81.0 Age-related osteoporosis without current pathological fracture; I48.0 Paroxysmal atrial fibrillation; E55.9 Vitamin D deficiency, unspecified; E78.00 Pure hypercholesterolemia, unspecified; I11.0 Hypertensive heart disease with heart failure; I50.42 Chronic combined systolic (congestive) and diastolic (congestive) heart failure; I25.10 Atherosclerotic heart disease of native coronary artery without angina pectoris; Z79.899 Other long term (current) drug therapy

== ENCOUNTER → 2019-01-16 | Outpatient (CLI) | payer MEDICARE | END | disposition home or self-care (01) | LOC: RESCLI 00:37 | DX: E03.9 Hypothyroidism, unspecified (principal); M81.0 Age-related osteoporosis without current pathological fracture; K57.92 Diverticulitis of intestine, part unspecified, without perforation or abscess without bleeding; I49.9 Cardiac arrhythmia, unspecified; I48.0 Paroxysmal atrial fibrillation; E55.9 Vitamin D deficiency, unspecified; I11.0 Hypertensive heart disease with heart failure; I50.42 Chronic combined systolic (congestive) and diastolic (congestive) heart failure; I48.2 Chronic atrial fibrillation; I25.10 Atherosclerotic heart disease of native coronary artery without angina pectoris; E78.00 Pure hypercholesterolemia, unspecified; K21.9 Gastro-esophageal reflux disease without esophagitis; Z79.899 Other long term (current) drug therapy ==

== ENCOUNTER → 2019-03-03 | Outpatient (CLI) | payer MEDICARE ==
[~2019-03-03] MED LIST changes: +COREG12.5 M1 PO; +LASIX20 MG PO; +PROPAFENONE HY150 MG PO
== END | disposition home or self-care (01) ==
LOC: RESCLI 13:39
DX: E78.00 Pure hypercholesterolemia, unspecified (principal); L28.2 Other prurigo; E03.9 Hypothyroidism, unspecified; M81.0 Age-related osteoporosis without current pathological fracture; I11.0 Hypertensive heart disease with heart failure; I50.42 Chronic combined systolic (congestive) and diastolic (congestive) heart failure; I48.20 Chronic atrial fibrillation, unspecified; E55.9 Vitamin D deficiency, unspecified; K21.9 Gastro-esophageal reflux disease without esophagitis; I25.10 Atherosclerotic heart disease of native coronary artery without angina pectoris; Z79.899 Other long term (current) drug therapy; Z88.8 Allergy status to other drugs, medicaments and biological substances

== ENCOUNTER 2019-03-12 15:33 | Inpatient (IN) | payer MEDICARE ==
[~2019-03-12] VITALS: Ht 162.6 cm; Wt 62.3 kg
[~2019-03-12 15:33] MED LIST changes: -COREG12.5 M1 PO; -LASIX20 MG PO; -PROPAFENONE HY150 MG PO
[2019-03-12 16:01] LABS: BASO % 0.3 % (0.0-1.0); EOS # 0.5 10*3/uL (0.0-0.4); HEMOGLOBIN 14.9 g/dl (12.0-16.0); LYMPH # 2.6 10*3/uL (1.3-4.4); LYMPH % 23.4 % (27.0-41.0); MEAN CORPUSCULAR HGB 30.8 pg (27.0-31.0); MEAN CORPUSCULAR HGB CONC 33.1 g/dl (33.0-37.0); MEAN PLATELET VOLUME 9.5 fl (9.6-12.3); MONO # 1.2 10*3/uL (0.1-1.0); MONO % 10.2 % (3.0-9.0); NEUT # 6.9 10*3/uL (2.3-7.9); NEUT % 61.7 % (47.0-73.0); PLATELET COUNT AUTOMATED 253 10*3/uL (130-400); RED BLOOD COUNT 4.84 10*6/uL (4.10-5.10); RED CELL DISTRI WIDTH 12.2 % (0-14.5); WHITE BLOOD COUNT 11.2 10*3/uL (4.8-10.8)
[2019-03-12 16:12] LABS: ACT PARTIAL THROMBO TIME 29.9 SECONDS (20.0-32.1); INTERNATIONAL NORM RATIO 1.1 (2.0-3.5)
[2019-03-12 16:20] LABS: ALBUMIN 3.5 gm/dl (3.1-4.5); ALKALINE PHOSPHATASE 99 U/L (45-117); BUN 26 mg/dl (7-24); CHLORIDE 98 mmol/L (98-107); CREATININE 1.36 mg/dL (0.55-1.02); POTASSIUM 4.1 mmol/L (3.5-5.1); SGOT/AST 25 IU/L (3-35); SGPT/ALT 22 U/L (12-78); SODIUM 135 mmol/L (136-145); TOTAL PROTEIN 7.5 gm/dL (6.4-8.2)
[2019-03-12 16:23] LABS: TROPONIN I < 0.015 ng/ml (<0.045)
[2019-03-12 17:00] VITALS: BP 123/52
[2019-03-12 17:45] VITALS: BP 128/44
[2019-03-12 19:05] VITALS: BP 118/48
--- NOTE | 2019-03-12 19:52 | NUR ---
PATIENT IS RESTING IN BED WITH NO COMPLAINTS. STILL WAITING FOR ROOM ON FLOOR FOR THE PATIENT.
[2019-03-12 20:00] VITALS: BP 146/47; BP 151/69
[2019-03-12 20:45] VITALS: BP 146/47
--- NOTE | 2019-03-12 20:45 | NUR ---
A 78, admitted to 5E, under the services of ADAM Roche DO with a diagnosis of CHEST PAIN RULE OUT ACUTE MYOCARDIAL INFARCTION, ABDOMINAL PAIN. Chief complaint is CHEST PAIN. Patient arrived via stretcher from ER. Monitor applied. Initial assessment completed. Vital signs taken and recorded. ADAM ROCHE DO notified of admission to the unit. Orders received. See assessment for past medical history, medications and allergies. Patient and/or family oriented to unit. [address] visitation policy reviewed. Clothing/patient valuable form completed. CALL LIGHT WITHIN REACH. PATIENT RESTING IN BED WITH NO COMPLAINTS AT THIS TIME. JULIANNE MCRAE
[2019-03-12] MEDS ORDERED: LASIX20 MG PO (21:45)
[2019-03-12] MEDS ORDERED: COREG12.5 M1 PO (21:45)
[2019-03-12] MEDS ORDERED: PROPAFENONE HY150 MG PO (21:46)
--- NOTE | 2019-03-12 22:12 | NUR ---
NOTIFIED RESIDENT OF COMPLETED MED REC.
[2019-03-13] VITALS: BP 127/44
--- NOTE | 2019-03-13 01:27 | NUR ---
Patient resting quietly with no c/o discomfort. Respirations easy and regular. Vital signs stable. No overt distress. CALL LIGHT WITHIN REACH. JULIANNE MCRAE
--- NOTE | 2019-03-13 01:55 | NUR ---
24 HR chart check completed.
[2019-03-13 06:26] LABS: BASO % 0.3 % (0.0-1.0); EOS # 0.4 10*3/uL (0.0-0.4); EOS % 3.7 % (1.0-4.0); HEMATOCRIT 39.9 % (37.0-47.0); HEMOGLOBIN 13.3 g/dl (12.0-16.0); LYMPH # 2.2 10*3/uL (1.3-4.4); LYMPH % 18.6 % (27.0-41.0); MEAN CELL VOLUME 91.7 fl (81.0-99.0); MEAN CORPUSCULAR HGB 30.6 pg (27.0-31.0); MEAN CORPUSCULAR HGB CONC 33.3 g/dl (33.0-37.0); MEAN PLATELET VOLUME 9.6 fl (9.6-12.3); MONO # 1.3 10*3/uL (0.1-1.0); MONO % 10.7 % (3.0-9.0); NEUT # 7.8 10*3/uL (2.3-7.9); NEUT % 66.4 % (47.0-73.0); PLATELET COUNT AUTOMATED 225 10*3/uL (130-400); RED BLOOD COUNT 4.35 10*6/uL (4.10-5.10); RED CELL DISTRI WIDTH 12.3 % (0-14.5); WHITE BLOOD COUNT 11.8 10*3/uL (4.8-10.8)
--- NOTE | 2019-03-13 06:47 | NUR ---
NOTIFIED DR ROBLES OF CONSULT. ORDERS RECIEVED TO KEEP THE PATIENT NPO AFTER STRESS TEST. DR ROBLES ALSO WANTS NOTIFIED OF THE RESULTS FROM STRESS TEST BECAUSE HE WOULD LIKE TO DO AN EGD FOLLOWING RESULTS OF STRESS TEST.
[2019-03-13 07:00] LABS: CREATININE 1.18 mg/dL (0.55-1.02); PHOSPHOROUS 2.7 mg/dL (2.5-4.9); POTASSIUM 3.7 mmol/L (3.5-5.1)
[2019-03-13 07:12] LABS: FREE T4 1.2 ng/dl (0.76-1.46); THYROID STIM HORMONE (HS) 8.8 uIU/ml (0.358-4.75)
[2019-03-13 08:00] VITALS: BP 126/58
--- NOTE | 2019-03-13 09:00 | NUR ---
Analytics Leader in to talk to patient. Patient states lives at home with alone. There are fw steps in the home. Physician: [facility] Home health services: none Patient's level of ADLs: INDEPENDENT Patient has working utilities: all working DME: none Follow-up physician's appointment after d/c: will be made by hospitalist nurse director upon discharge Does patient want to access PORTAL?: no Discharge plan discussed with patient, she lives at home alone, she is independent in adls and ambulation, drives she states she will return home when medically stable and denies any home needs. ALDEN JIMÉNEZ
--- NOTE | 2019-03-13 10:41 | NUR ---
INFORMED SIGNED CONSENT OBTAINED FOR LEXISCAN STRESS TEST WITH DR PASCUAL. RESTING EKG NSR HR 64 BP 124/58. PULSE OX 97% LUNGS CLEAR. PT COMPLETED ONE MINUTE OF A LEXISCAN PROTOCOL WITH PT RECEIVING LEXISCAN 0.4 MG IV OVER 10 SEC[address] ARRHYTHMI[address] OR [address] CHANGES. PT C/O CHEST HEAVINESS WITH INJECTION. LAST RECOVERY HR OF 85 BP 120/64. PT IN STABLE CONDITION, AWAITING NUCLEAR IMAGES. PT REMAINS NPO!!!
[2019-03-13 12:00] VITALS: BP 103/55
--- NOTE | 2019-03-13 12:10 | NUR ---
ZOFRAN GIVEN PER PATIENT REQUEST FOR NAUSEA.
--- NOTE | 2019-03-13 13:00 | NUR ---
PATIENT SLEEPING. NO SIGNS OF DISTRESS. ZOFRAN EFFECTIVE.
--- NOTE | 2019-03-13 14:03 | NUR ---
PATIENT SLEEPING. NO SIGNS OF DISTRESS NOTED.
[2019-03-13 16:00] VITALS: BP 119/50
[2019-03-13 20:00] VITALS: BP 110/49
--- NOTE | 2019-03-13 20:00 | NUR ---
AAOX3 RESTING IN BED. PT. VOICES NO C/O AT THIS TIME. CALL LIGHT WITHIN REACH.
[2019-03-14] VITALS: BP 99/54
--- NOTE | 2019-03-14 02:30 | NUR ---
PT.'S HEART RATE IN THE 40'S. CHECKED ON PATIENT & PLACED NEW LEADS ON. PT. IS ASYMPTOMATIC. VOICES NO C/O; WILL CONTINUE TO MONITOR.
[2019-03-14 06:32] LABS: BASO % 0.3 % (0.0-1.0); EOS # 0.5 10*3/uL (0.0-0.4); EOS % 4.6 % (1.0-4.0); HEMATOCRIT 37.6 % (37.0-47.0); HEMOGLOBIN 12.4 g/dl (12.0-16.0); LYMPH % 29.1 % (27.0-41.0); MEAN CELL VOLUME 91.9 fl (81.0-99.0); MEAN CORPUSCULAR HGB 30.3 pg (27.0-31.0); MEAN PLATELET VOLUME 9.6 fl (9.6-12.3); MONO # 1.1 10*3/uL (0.1-1.0); MONO % 11.1 % (3.0-9.0); NEUT # 5.6 10*3/uL (2.3-7.9); NEUT % 54.6 % (47.0-73.0); PLATELET COUNT AUTOMATED 212 10*3/uL (130-400); RED BLOOD COUNT 4.09 10*6/uL (4.10-5.10); RED CELL DISTRI WIDTH 12.1 % (0-14.5); WHITE BLOOD COUNT 10.3 10*3/uL (4.8-10.8)
[2019-03-14 06:49] LABS: CREATININE 1.21 mg/dL (0.55-1.02); POTASSIUM 3.7 mmol/L (3.5-5.1)
--- NOTE | 2019-03-14 08:00 | NUR ---
IN TO ROOM. PATIENT AWAKE, ALERT AND ORIENTED. NO STATED COMPLAINTS. PT WAS SEEN WALKING HALLWAYS PREVIOUSLY THIS MORNING. STEADY GAIT ASSESSED. NO S/S OF DISTRESS, PAIN OR SOB NOTED. MANUAL BLOOD PRESSURE OBTAINED. DR. OLSON NOTIFIED OF RESULT. BED IN LOWEST LOCKED POSITION, CALL LIGHT WITHIN REACH.
[2019-03-14 08:22] VITALS: BP 96/42
--- NOTE | 2019-03-14 09:45 | NUR ---
MANUAL BLOOD PRESSURE OBTAINED. DR. OLSON NOTIFIED OF RESULT OF 100/42. ORDERED TO HOLD BLOOD PRESSURE MEDICATIONS AT THIS TIME. NO S/S OF DISTRESS. PT HAS NO STATED COMPLAINTS. OTHER VITALS STABLE. BED IN LOWEST LOCKED POSITION AND CALL LIGHT WITHIN REACH.
--- NOTE | 2019-03-14 10:00 | NUR ---
FAMILY IN ROOM. REQUESTED TO SPEAK WITH DOCTOR. DR. OLSON NOTIFIED.
--- NOTE | 2019-03-14 10:15 | NUR ---
ARRIVED ON SHIFT, INTRODUCED TO PATIENT, BEDSIDE REPORT RECEIVED, NO NEEDS VOICED AT THIS TIME, WHITE BOARD UPDATED.
[2019-03-14 12:00] VITALS: BP 130/52
--- NOTE | 2019-03-14 15:01 | NUR ---
PATIENT AWAKE, ALERT OR ORIENTED. NO STATED COMPLAINTS AT THIS TIME. NO S/S OF DISTRESS OR SOB NOTED. DENIES PAIN. RESPIRATIONS EASY AND REGULAR. BED IN LOWEST LOCKED POSITION AND CALL LIGHT WITHIN REACH AND ENCOURAGED.
[2019-03-14 16:00] VITALS: BP 130/47
[2019-03-14 17:14] VITALS: BP 98/40
--- NOTE | 2019-03-14 17:17 | NUR ---
PT'S MANUAL BP IS 98/42. DR. OLSON NOTIFIED. INSTRUCTED TO HOLD BP MEDS AT THIS TIME.
[2019-03-14 20:00] VITALS: BP 123/48
--- NOTE | 2019-03-14 20:40 | NUR ---
24 HR chart check completed.
[2019-03-15] VITALS: BP 102/49
[2019-03-15 06:49] LABS: BUN 16 mg/dl (7-24); CHLORIDE 104 mmol/L (98-107); CREATININE 1.02 mg/dL (0.55-1.02); POTASSIUM 3.4 mmol/L (3.5-5.1); SODIUM 138 mmol/L (136-145)
[2019-03-15 08:00] VITALS: BP 124/52
[2019-03-15 11:44] VITALS: BP 131/46
--- NOTE | 2019-03-15 13:06 | NUR ---
Patient resting quietly with no c/o discomfort. Respirations easy and regular. Vital signs stable. No overt distress. JULIANNE MCRAE
--- NOTE | 2019-03-15 14:54 | NUR ---
DR PASCUAL IN HOUSE. HE IS AWARE OF THE CONSULT.
[2019-03-15 15:33] VITALS: BP 114/76
--- NOTE | 2019-03-15 19:15 | NUR ---
ARRIVED ON SHIFT, INTRODUCED TO PATIENT, BEDSIDE REPORT RECEIVED, NO NEEDS VOICED AT THIS TIME. WHITE BOARD UPDATED.
--- NOTE | 2019-03-15 22:09 | NUR ---
24 HR chart check completed.
[2019-03-16] VITALS: BP 99/49
--- NOTE | 2019-03-16 00:31 | NUR ---
Patient sleeping. Respirations relaxed and easy. Siderails up x 2. [place] on, bed in low position, call light within reach. ESTEBAN HUANG
--- NOTE | 2019-03-16 06:29 | NUR ---
SPOKE WITH NURSE CRANE FROM [facility] REVIEWED PATIENTS HISTORY, AND NURSE TO NURSE GIVEN.
--- NOTE | 2019-03-16 07:20 | NUR ---
Discharge instructions reviewed with patient, Patient receptive and verbalizes understanding. Follow-up care arranged. Written instructions given to [facility], MONITOR REMOVED, IV LEFT HAND IN PLACE. ESTEBAN HUANG
== END 2019-03-16 07:20 | disposition other institution (70) | DRG 205 ==
LOC: ED 15:33 → 5E 17:16 → EDHOLD 17:16 → 5E 20:11
PROVIDERS: Emergency Medicine; Internal Medicine; ADMIT Internal Medicine
PROC: 3E073KZ Introduction of Other Diagnostic Substance into Coronary Artery, Percutaneous Approach (ICD-10-PCS; principal; 2019-03-13)
PROC: 4A02XM4 Measurement of Cardiac Total Activity, External Approach (ICD-10-PCS; principal; 2019-03-13)
DX: M94.0 Chondrocostal junction syndrome [Tietze] (principal); N17.0 Acute kidney failure with tubular necrosis; E87.1 Hypo-osmolality and hyponatremia; I48.0 Paroxysmal atrial fibrillation; R10.84 Generalized abdominal pain; K21.9 Gastro-esophageal reflux disease without esophagitis; R73.9 Hyperglycemia, unspecified; D72.829 Elevated white blood cell count, unspecified; E83.41 Hypermagnesemia; R00.1 Bradycardia, unspecified; R06.82 Tachypnea, not elsewhere classified; I25.9 Chronic ischemic heart disease, unspecified; E66.01 Morbid (severe) obesity due to excess calories; I11.9 Hypertensive heart disease without heart failure; I34.0 Nonrheumatic mitral (valve) insufficiency; Z96.1 Presence of intraocular lens; E78.5 Hyperlipidemia, unspecified; M47.896 Other spondylosis, lumbar region; Z80.0 Family history of malignant neoplasm of digestive organs; Z84.1 Family history of disorders of kidney and ureter; Z82.5 Family history of asthma and other chronic lower respiratory diseases; Z84.89 Family history of other specified conditions; Z88.1 Allergy status to other antibiotic agents; Z88.8 Allergy status to other drugs, medicaments and biological substances; Z79.899 Other long term (current) drug therapy; Z79.01 Long term (current) use of anticoagulants; Z68.23 Body mass index [BMI] 23.0-23.9, adult

== ENCOUNTER → 2019-03-12 | Outpatient (CLI) | payer MEDICARE | END | disposition home or self-care (01) | LOC: RESCLI 01:12 | DX: Z23 Encounter for immunization (principal); E03.9 Hypothyroidism, unspecified; E78.00 Pure hypercholesterolemia, unspecified; M81.0 Age-related osteoporosis without current pathological fracture; K57.92 Diverticulitis of intestine, part unspecified, without perforation or abscess without bleeding; I49.9 Cardiac arrhythmia, unspecified; E55.9 Vitamin D deficiency, unspecified; I11.0 Hypertensive heart disease with heart failure; I50.42 Chronic combined systolic (congestive) and diastolic (congestive) heart failure; I48.20 Chronic atrial fibrillation, unspecified; I25.10 Atherosclerotic heart disease of native coronary artery without angina pectoris; K21.9 Gastro-esophageal reflux disease without esophagitis; M19.90 Unspecified osteoarthritis, unspecified site ==

== ENCOUNTER → 2019-04-30 | Outpatient (CLI) | payer MEDICARE ==
[~2019-04-30] MED LIST changes: +ASPIRIN ADULT L81 M2 PO; +CARVEDILOL6.25 MG PO; +COREG12.5 M1 PO; +LASIX20 MG PO; +PLAVIX75 M1 PO; +PROPAFENONE HC150 MG PO; +PROPAFENONE HY150 MG PO
== END | disposition home or self-care (01) ==
LOC: RESCLI 00:59
DX: I11.0 Hypertensive heart disease with heart failure (principal); I50.42 Chronic combined systolic (congestive) and diastolic (congestive) heart failure; E03.9 Hypothyroidism, unspecified; M81.0 Age-related osteoporosis without current pathological fracture; K57.92 Diverticulitis of intestine, part unspecified, without perforation or abscess without bleeding; I49.9 Cardiac arrhythmia, unspecified; I48.0 Paroxysmal atrial fibrillation; E55.9 Vitamin D deficiency, unspecified; E78.00 Pure hypercholesterolemia, unspecified; I48.20 Chronic atrial fibrillation, unspecified; I25.10 Atherosclerotic heart disease of native coronary artery without angina pectoris; K21.9 Gastro-esophageal reflux disease without esophagitis; I25.118 Atherosclerotic heart disease of native coronary artery with other forms of angina pectoris; Z87.19 Personal history of other diseases of the digestive system; Z79.899 Other long term (current) drug therapy; Z88.8 Allergy status to other drugs, medicaments and biological substances

== ENCOUNTER 2019-05-07 13:06 | Inpatient (IN) | payer MEDICARE ==
[~2019-05-07] VITALS: Ht 152.4 cm; Wt 63.3 kg
[2019-05-07] VITALS (19 sets, daily range): BP systolic 101–209; BP diastolic 42–99
[~2019-05-07 13:06] MED LIST changes: -ASPIRIN ADULT L81 M2 PO; -CARVEDILOL6.25 MG PO; -PLAVIX75 M1 PO; -PROPAFENONE HC150 MG PO
[2019-05-07 14:17] LABS: BASO # 0.1 10*3/uL (0.0-0.1); BASO % 0.5 % (0.0-1.0); EOS # 0.4 10*3/uL (0.0-0.4); HEMATOCRIT 44.2 % (37.0-47.0); HEMOGLOBIN 14.3 g/dl (12.0-16.0); LYMPH # 1.7 10*3/uL (1.3-4.4); LYMPH % 12.8 % (27.0-41.0); MEAN CELL VOLUME 93.4 fl (81.0-99.0); MEAN CORPUSCULAR HGB 30.2 pg (27.0-31.0); MEAN CORPUSCULAR HGB CONC 32.4 g/dl (33.0-37.0); MEAN PLATELET VOLUME 9.6 fl (9.6-12.3); MONO # 0.8 10*3/uL (0.1-1.0); NEUT # 10.3 10*3/uL (2.3-7.9); NEUT % 77.4 % (47.0-73.0); PLATELET COUNT AUTOMATED 291 10*3/uL (130-400); RED BLOOD COUNT 4.73 10*6/uL (4.10-5.10); RED CELL DISTRI WIDTH 12.9 % (0-14.5); WHITE BLOOD COUNT 13.3 10*3/uL (4.8-10.8)
[2019-05-07 14:27] LABS: ACT PARTIAL THROMBO TIME 30.2 SECONDS (20.0-32.1)
[2019-05-07 14:36] LABS: ALBUMIN 3.9 gm/dl (3.1-4.5); CREATININE 1.33 mg/dL (0.55-1.02); TOTAL PROTEIN 7.8 gm/dL (6.4-8.2); TROPONIN I 0.016 ng/ml (<0.045)
[2019-05-07 16:05] LABS: BILIRUBIN NEGATIVE (NEGATIVE); BLOOD NEGATIVE (NEGATIVE); CLARITY SL CLOUDY (CLEAR); COLOR YELLOW (YELLOW); GLUCOSE NEGATIVE (NEGATIVE); KETONE NEGATIVE (NEGATIVE); LEUKO ESTERASE NEGATIVE (NEGATIVE); NITRITE NEGATIVE (NEGATIVE); PH 7.5 (5.0-9.0); UROBILINOGEN 0.2 E.U./dl (0.2-1.0)
--- NOTE | 2019-05-07 16:38 | NUR ---
MULTIPLE ATTEMPTS TO START AN IV.
--- NOTE | 2019-05-07 17:13 | NUR ---
MULTIPLE ATTEMPTS BY THREE MORE NURSES TO GAIN IV ACCESS. PHYSICIAN AWARE.
--- NOTE | 2019-05-07 18:34 | NUR ---
PT TO CT. CONDITION STABLE.
--- NOTE | 2019-05-07 19:00 | NUR ---
PROVIDED PT WITH MEAL TRAY. NO COMPLAINTS AT THIS TIME. FAMILY AT BEDSIDE. CALL DANIELLE HAN.
[2019-05-07] MEDS ORDERED: PLAVIX75 M1 PO (20:15)
--- NOTE | 2019-05-07 21:00 | NUR ---
DR. BOYD AWARE OF PATIENT CONSULT. WILL CALL IN AM WITH ORDERS
--- NOTE | 2019-05-07 21:35 | NUR ---
DAUGHTER TOOK PTS PURSE HOME WITH HER.
--- NOTE | 2019-05-07 23:50 | NUR ---
REPORT RECEIVED FROM RAVI BAKER. PT RESTING QUIETLY IN BED. CALL LIGHT IN REACH. VSS. NSR/SB ON MONITOR. FAMILY HAS LEFT FOR THE EVENING. WILL CONTINUE TO MONITOR
[2019-05-08] VITALS (7 sets, daily range): BP systolic 106–150; BP diastolic 42–70
--- NOTE | 2019-05-08 03:23 | NUR ---
PATIENT IS RESTING IN BED AT THIS TIME. VITALS WNL.
--- NOTE | 2019-05-08 06:11 | NUR ---
PATIENT IS RESTING IN BED WITH NO ISSUES NOTED AT THIS TIME,
--- NOTE | 2019-05-08 07:04 | NUR ---
REPORT RECIEVED FROM CHIQUI QUEZADA RN.
--- NOTE | 2019-05-08 07:26 | NUR ---
PT RESTING IN BED WITH NO SIGNS OF ACUTE DISTRESS. PT IS NOW UP TO BATHROOM. BED IS IN LOW POSITION. CALL LEIJA WITHIN REACH. WILL CONTINUE TO MONITOR.
[2019-05-08 09:13] LABS: BASO # 0.1 10*3/uL (0.0-0.1); BASO % 0.6 % (0.0-1.0); EOS # 0.4 10*3/uL (0.0-0.4); EOS % 4.6 % (1.0-4.0); HEMATOCRIT 41.7 % (37.0-47.0); HEMOGLOBIN 13.3 g/dl (12.0-16.0); LYMPH # 2.4 10*3/uL (1.3-4.4); MEAN CELL VOLUME 93.3 fl (81.0-99.0); MEAN CORPUSCULAR HGB 29.8 pg (27.0-31.0); MEAN CORPUSCULAR HGB CONC 31.9 g/dl (33.0-37.0); MEAN PLATELET VOLUME 9.6 fl (9.6-12.3); MONO # 0.7 10*3/uL (0.1-1.0); MONO % 9.2 % (3.0-9.0); NEUT # 4.4 10*3/uL (2.3-7.9); NEUT % 55.5 % (47.0-73.0); PLATELET COUNT AUTOMATED 260 10*3/uL (130-400); RED BLOOD COUNT 4.47 10*6/uL (4.10-5.10); RED CELL DISTRI WIDTH 12.8 % (0-14.5); WHITE BLOOD COUNT 7.9 10*3/uL (4.8-10.8)
[2019-05-08 09:25] LABS: CREATININE 1.15 mg/dL (0.55-1.02); PHOSPHOROUS 2.6 mg/dL (2.5-4.9); POTASSIUM 4.2 mmol/L (3.5-5.1)
[2019-05-09] VITALS: BP 140/50
--- NOTE | 2019-05-09 03:48 | NUR ---
24 HR chart check completed.
[2019-05-09 04:00] VITALS: BP 120/58
[2019-05-09 08:00] VITALS: BP 138/60
[2019-05-09] MEDS ORDERED: PROPAFENONE HC150 MG PO (10:52)
[2019-05-09] MEDS ORDERED: CARVEDILOL6.25 MG PO (10:52)
[2019-05-09] MEDS ORDERED: ASPIRIN ADULT L81 M2 PO (10:52)
--- NOTE | 2019-05-09 12:36 | NUR ---
KORINA DISCHARGED TO HOME.
== END 2019-05-09 12:36 | disposition home or self-care (01) | DRG 304 ==
LOC: ED 13:06 → 4E 16:51 → EDHOLD 16:51 → 4E 05-08 07:55
PROVIDERS: Emergency Medicine; Student in an Organized Health Care Education/Training Program; ADMIT Internal Medicine
DX: I16.1 Hypertensive emergency (principal); N17.0 Acute kidney failure with tubular necrosis; K21.9 Gastro-esophageal reflux disease without esophagitis; D72.829 Elevated white blood cell count, unspecified; E83.41 Hypermagnesemia; I12.9 Hypertensive chronic kidney disease with stage 1 through stage 4 chronic kidney disease, or unspecified chronic kidney disease; N18.3 Chronic kidney disease, stage 3 (moderate); R73.9 Hyperglycemia, unspecified; I48.0 Paroxysmal atrial fibrillation; E78.5 Hyperlipidemia, unspecified; I25.10 Atherosclerotic heart disease of native coronary artery without angina pectoris; G89.29 Other chronic pain; M54.9 Dorsalgia, unspecified; Z96.1 Presence of intraocular lens; Z80.0 Family history of malignant neoplasm of digestive organs; Z95.5 Presence of coronary angioplasty implant and graft; Z83.6 Family history of other diseases of the respiratory system; Z88.1 Allergy status to other antibiotic agents; Z88.8 Allergy status to other drugs, medicaments and biological substances; Z79.899 Other long term (current) drug therapy; Z98.42 Cataract extraction status, left eye; Z98.41 Cataract extraction status, right eye

== ENCOUNTER 2019-07-08 12:39 | Emergency (ER) | payer MEDICARE ==
[~2019-07-08] VITALS: Ht 152.4 cm; Wt 61.7 kg
[~2019-07-08 12:39] MED LIST changes: +ASPIRIN ADULT L81 M2 PO; +CARVEDILOL6.25 MG PO; +PLAVIX75 M1 PO; +PROPAFENONE HC150 MG PO
[2019-07-08 14:05] LABS: BASO % 0.5 % (0.0-1.0); EOS # 0.3 10*3/uL (0.0-0.4); EOS % 3.1 % (1.0-4.0); HEMATOCRIT 41.1 % (37.0-47.0); HEMOGLOBIN 13.7 g/dl (12.0-16.0); LYMPH # 1.9 10*3/uL (1.3-4.4); LYMPH % 23.5 % (27.0-41.0); MEAN CELL VOLUME 90.7 fl (81.0-99.0); MEAN CORPUSCULAR HGB 30.2 pg (27.0-31.0); MEAN CORPUSCULAR HGB CONC 33.3 g/dl (33.0-37.0); MEAN PLATELET VOLUME 9.5 fl (9.6-12.3); MONO # 0.8 10*3/uL (0.1-1.0); NEUT # 5.1 10*3/uL (2.3-7.9); NEUT % 62.4 % (47.0-73.0); PLATELET COUNT AUTOMATED 251 10*3/uL (130-400); RED BLOOD COUNT 4.53 10*6/uL (4.10-5.10); WHITE BLOOD COUNT 8.2 10*3/uL (4.8-10.8)
[2019-07-08 14:20] LABS: CREATININE 1.19 mg/dL (0.55-1.02); TROPONIN I 0.021 ng/ml (<0.045)
[2019-07-08 15:06] VITALS: BP 138/58
[2019-07-08] MEDS ORDERED: ZOFRAN4 MG PO (15:37)
== END 2019-07-08 15:40 | disposition home or self-care (01) ==
LOC: ED 12:39
PROVIDERS: Emergency Medicine
DX: K29.70 Gastritis, unspecified, without bleeding (principal); R51 Headache; R00.2 Palpitations; I12.9 Hypertensive chronic kidney disease with stage 1 through stage 4 chronic kidney disease, or unspecified chronic kidney disease; N18.3 Chronic kidney disease, stage 3 (moderate); K21.9 Gastro-esophageal reflux disease without esophagitis; I48.0 Paroxysmal atrial fibrillation; J45.909 Unspecified asthma, uncomplicated; I10 Essential (primary) hypertension; E03.9 Hypothyroidism, unspecified; Z88.8 Allergy status to other drugs, medicaments and biological substances; Z88.2 Allergy status to sulfonamides; Z79.82 Long term (current) use of aspirin; Z79.899 Other long term (current) drug therapy; E78.00 Pure hypercholesterolemia, unspecified

== ENCOUNTER 2019-09-18 11:53 | Emergency (ER) | payer MEDICARE ==
[2019-09-18 12:56] LABS: BILIRUBIN NEGATIVE (NEGATIVE); BLOOD 3+ (NEGATIVE); CLARITY TURBID (CLEAR); COLOR RED (YELLOW); GLUCOSE NEGATIVE (NEGATIVE); KETONE NEGATIVE (NEGATIVE); LEUKO ESTERASE NEGATIVE (NEGATIVE); NITRITE NEGATIVE (NEGATIVE); PH 6.5 (5.0-9.0); SPECIFIC GRAVITY 1.025 (1.005-1.030); UROBILINOGEN 0.2 E.U./dl (0.2-1.0)
[2019-09-18 13:01] LABS: BACTERIA 4+; RBC TNTC rbc/hpf (0-2)
[2019-09-18] MEDS ORDERED: MACROBID100 M1 PO ×2 (13:06→13:18)
[2019-09-18] MEDS ORDERED: PYRIDIUM200 M1 PO ×2 (13:06→13:18)
== END 2019-09-18 13:20 | disposition home or self-care (01) ==
LOC: ED 11:53
PROVIDERS: Physician Assistant
DX: N30.80 Other cystitis without hematuria (principal); J45.909 Unspecified asthma, uncomplicated; I10 Essential (primary) hypertension; K21.9 Gastro-esophageal reflux disease without esophagitis; E03.9 Hypothyroidism, unspecified; E78.00 Pure hypercholesterolemia, unspecified; I48.91 Unspecified atrial fibrillation; Z88.8 Allergy status to other drugs, medicaments and biological substances; Z79.899 Other long term (current) drug therapy; Z79.2 Long term (current) use of antibiotics

== ENCOUNTER 2019-11-17 10:47 | Emergency (ER) | payer MEDICARE ==
[~2019-11-17] VITALS: Ht 152.4 cm; Wt 61.2 kg
[~2019-11-17 10:47] MED LIST changes: +MACROBID100 M1 PO; +PYRIDIUM200 M1 PO
[2019-11-17 10:55] VITALS: BP 120/50
[2019-11-17 11:46] LABS: BASO % 0.3 % (0.0-1.0); EOS # 0.2 10*3/uL (0.0-0.4); EOS % 1.9 % (1.0-4.0); HEMATOCRIT 39.3 % (37.0-47.0); LYMPH # 1.8 10*3/uL (1.3-4.4); LYMPH % 18.6 % (27.0-41.0); MEAN CORPUSCULAR HGB 30.2 pg (27.0-31.0); MEAN CORPUSCULAR HGB CONC 32.8 g/dl (33.0-37.0); MEAN PLATELET VOLUME 9.1 fl (9.6-12.3); MONO # 0.9 10*3/uL (0.1-1.0); MONO % 9.7 % (3.0-9.0); NEUT # 6.7 10*3/uL (2.3-7.9); NEUT % 69.2 % (47.0-73.0); PLATELET COUNT AUTOMATED 251 10*3/uL (130-400); RED BLOOD COUNT 4.27 10*6/uL (4.10-5.10); RED CELL DISTRI WIDTH 12.6 % (0-14.5); WHITE BLOOD COUNT 9.6 10*3/uL (4.8-10.8)
[2019-11-17 12:06] LABS: ALBUMIN 3.4 gm/dl (3.1-4.5); ALKALINE PHOSPHATASE 95 U/L (45-117); BUN 17 mg/dl (7-24); CHLORIDE 104 mmol/L (98-107); CREATININE 1.15 mg/dL (0.55-1.02); LIPASE 115 U/L (73-393); POTASSIUM 3.9 mmol/L (3.5-5.1); SGOT/AST 22 IU/L (3-35); SGPT/ALT 22 U/L (12-78); SODIUM 136 mmol/L (136-145); TOTAL PROTEIN 7.4 gm/dL (6.4-8.2)
[2019-11-17 12:07] LABS: TROPONIN I < 0.015 ng/ml (<0.045)
[2019-11-17 12:22] LABS: COLOR YELLOW (YELLOW)
[2019-11-17 12:23] LABS: BILIRUBIN NEGATIVE (NEGATIVE); BLOOD NEGATIVE (NEGATIVE); CLARITY CLEAR (CLEAR); GLUCOSE NEGATIVE (NEGATIVE); KETONE NEGATIVE (NEGATIVE); LEUKO ESTERASE TRACE (NEGATIVE); NITRITE NEGATIVE (NEGATIVE); PH 6.5 (5.0-9.0); SPECIFIC GRAVITY 1.015 (1.005-1.030); UROBILINOGEN 0.2 E.U./dl (0.2-1.0)
[2019-11-17 12:35] LABS: BACTERIA 2+; EPITHELIAL CELLS 21-30; MUCOUS 2+; WBC 16-20 wbc/hpf (0-5)
[2019-11-17] MEDS ORDERED: MACROBID100 M1 PO (13:17)
[2019-11-17] MEDS ORDERED: PREDNISONE20 M1 PO (13:17)
== END 2019-11-17 13:23 | disposition home or self-care (01) ==
LOC: ED 10:47
PROVIDERS: Emergency Medicine
DX: N39.0 Urinary tract infection, site not specified (principal); M54.5 Low back pain; Z88.8 Allergy status to other drugs, medicaments and biological substances; Z88.1 Allergy status to other antibiotic agents; Z79.899 Other long term (current) drug therapy

== ENCOUNTER → 2019-12-28 | Outpatient (CLI) | payer MEDICARE ==
[~2019-12-28] MED LIST changes: +PREDNISONE20 M1 PO
[2019-12-28 11:55] LABS: ALBUMIN 3.7 gm/dl (3.1-4.5); ALKALINE PHOSPHATASE 105 U/L (45-117); BUN 14 mg/dl (7-24); CHLORIDE 107 mmol/L (98-107); CHOLESTEROL 197 mg/dL (<200); CREATININE 0.99 mg/dL (0.55-1.02); HDL CHOLESTEROL 67 mg/dl (40-60); LDL CHOLESTEROL 86 mg/dL (9-159); POTASSIUM 3.9 mmol/L (3.5-5.1); SGOT/AST 18 IU/L (3-35); SGPT/ALT 22 U/L (12-78); SODIUM 141 mmol/L (136-145); TOTAL PROTEIN 7.8 gm/dL (6.4-8.2); TRIGLYCERIDES 218 mg/dl (<150); VLDL CHOLESTEROL 44 mg/dL (6-40)
[2019-12-28 12:21] LABS: FREE T4 1.09 ng/dl (0.76-1.46)
[2019-12-28 12:22] LABS: BASO % 0.5 % (0.0-1.0); EOS # 0.2 10*3/uL (0.0-0.4); EOS % 2.3 % (1.0-4.0); HEMATOCRIT 40.5 % (37.0-47.0); LYMPH # 1.8 10*3/uL (1.3-4.4); LYMPH % 24.1 % (27.0-41.0); MEAN CELL VOLUME 92.7 fl (81.0-99.0); MEAN CORPUSCULAR HGB CONC 32.3 g/dl (33.0-37.0); MEAN PLATELET VOLUME 9.5 fl (9.6-12.3); MONO # 0.8 10*3/uL (0.1-1.0); MONO % 10.5 % (3.0-9.0); NEUT # 4.6 10*3/uL (2.3-7.9); NEUT % 61.4 % (47.0-73.0); PLATELET COUNT AUTOMATED 306 10*3/uL (130-400); RED BLOOD COUNT 4.37 10*6/uL (4.10-5.10); RED CELL DISTRI WIDTH 13.1 % (0-14.5); WHITE BLOOD COUNT 7.6 10*3/uL (4.8-10.8)
== END | disposition home or self-care (01) ==
LOC: LAB 10:59
PROVIDERS: Student in an Organized Health Care Education/Training Program; ATTEND Internal Medicine Nephrology
DX: I10 Essential (primary) hypertension (principal); E03.9 Hypothyroidism, unspecified; M81.0 Age-related osteoporosis without current pathological fracture; E78.00 Pure hypercholesterolemia, unspecified; E55.9 Vitamin D deficiency, unspecified

== ENCOUNTER 2020-01-31 04:35 | Emergency (ER) | payer MEDICARE ==
[~2020-01-31] VITALS: Ht 152.4 cm; Wt 61.7 kg
== END 2020-01-31 05:10 | disposition home or self-care (01) ==
LOC: ED 04:35
DX: S01.311A Laceration without foreign body of right ear, initial encounter (principal); I10 Essential (primary) hypertension; K21.9 Gastro-esophageal reflux disease without esophagitis; E03.9 Hypothyroidism, unspecified; E78.00 Pure hypercholesterolemia, unspecified; I48.91 Unspecified atrial fibrillation; Z79.82 Long term (current) use of aspirin; Z79.899 Other long term (current) drug therapy; Z79.2 Long term (current) use of antibiotics; X58.XXXA Exposure to other specified factors, initial encounter; Y93.89 Activity, other specified; Y92.89 Other specified places as the place of occurrence of the external cause; Y99.8 Other external cause status; J45.909 Unspecified asthma, uncomplicated

== ENCOUNTER → 2020-02-03 | Outpatient (CLI) | payer MEDICARE | END | disposition home or self-care (01) | LOC: RAD 07:47 | PROVIDERS: ATTEND Internal Medicine | DX: M81.0 Age-related osteoporosis without current pathological fracture (principal) ==

== ENCOUNTER → 2020-02-16 | Outpatient (CLI) | payer MEDICARE | END | disposition home or self-care (01) | LOC: LAB 12:58 | PROVIDERS: ATTEND Student in an Organized Health Care Education/Training Program | DX: E03.9 Hypothyroidism, unspecified (principal) ==

== ENCOUNTER → 2020-02-17 | Outpatient (CLI) | payer MEDICARE | END | disposition home or self-care (01) | LOC: RESCLI 01:14 | PROVIDERS: ATTEND Student in an Organized Health Care Education/Training Program | DX: Z23 Encounter for immunization (principal); I10 Essential (primary) hypertension; E55.9 Vitamin D deficiency, unspecified; I25.811 Atherosclerosis of native coronary artery of transplanted heart without angina pectoris; M81.0 Age-related osteoporosis without current pathological fracture; E03.9 Hypothyroidism, unspecified; I48.20 Chronic atrial fibrillation, unspecified ==

== ENCOUNTER → 2020-06-01 | Outpatient (CLI) | payer MEDICARE | END | disposition home or self-care (01) | LOC: RESCLI 00:40 | PROVIDERS: ATTEND Internal Medicine Nephrology | DX: I25.118 Atherosclerotic heart disease of native coronary artery with other forms of angina pectoris (principal); E03.9 Hypothyroidism, unspecified; I10 Essential (primary) hypertension; E55.9 Vitamin D deficiency, unspecified; M81.0 Age-related osteoporosis without current pathological fracture; I48.20 Chronic atrial fibrillation, unspecified; E78.00 Pure hypercholesterolemia, unspecified; Z79.82 Long term (current) use of aspirin; Z79.899 Other long term (current) drug therapy; Z88.8 Allergy status to other drugs, medicaments and biological substances ==

== ENCOUNTER → 2020-07-06 | Outpatient (CLI) | payer MEDICARE ==
[2020-07-06 10:00] LABS: BASO # 0.1 10*3/uL (0.0-0.1); BASO % 0.8 % (0.0-1.0); EOS # 0.2 10*3/uL (0.0-0.4); EOS % 2.7 % (1.0-4.0); HEMATOCRIT 40.5 % (37.0-47.0); LYMPH # 2.1 10*3/uL (1.3-4.4); MEAN CELL VOLUME 89.6 fl (81.0-99.0); MEAN CORPUSCULAR HGB 30.3 pg (27.0-31.0); MEAN CORPUSCULAR HGB CONC 33.8 g/dl (33.0-37.0); MEAN PLATELET VOLUME 9.2 fl (9.6-12.3); MONO # 0.7 10*3/uL (0.1-1.0); MONO % 9.5 % (3.0-9.0); NEUT # 4.4 10*3/uL (2.3-7.9); NEUT % 58.9 % (47.0-73.0); PLATELET COUNT AUTOMATED 269 10*3/uL (130-400); RED BLOOD COUNT 4.52 10*6/uL (4.10-5.10); RED CELL DISTRI WIDTH 12.6 % (0-14.5); WHITE BLOOD COUNT 7.5 10*3/uL (4.8-10.8)
[2020-07-06 10:16] LABS: ALBUMIN 3.8 gm/dl (3.1-4.5); CREATININE 1.08 mg/dL (0.55-1.02); POTASSIUM 4.3 mmol/L (3.5-5.1)
[2020-07-06 10:54] LABS: FREE T4 1.43 ng/dl (0.76-1.46)
== END | disposition home or self-care (01) ==
LOC: LAB 09:42
PROVIDERS: Student in an Organized Health Care Education/Training Program; ATTEND Family Medicine
DX: E03.9 Hypothyroidism, unspecified (principal); I10 Essential (primary) hypertension; E78.00 Pure hypercholesterolemia, unspecified; E55.9 Vitamin D deficiency, unspecified

== ENCOUNTER → 2020-07-08 | Outpatient (CLI) | payer MEDICARE | END | disposition home or self-care (01) | LOC: RESCLI 00:52 | PROVIDERS: ATTEND Internal Medicine | DX: E03.9 Hypothyroidism, unspecified (principal); I10 Essential (primary) hypertension; E55.9 Vitamin D deficiency, unspecified; I25.118 Atherosclerotic heart disease of native coronary artery with other forms of angina pectoris; M81.0 Age-related osteoporosis without current pathological fracture; I48.20 Chronic atrial fibrillation, unspecified; E78.00 Pure hypercholesterolemia, unspecified; Z79.899 Other long term (current) drug therapy; Z88.8 Allergy status to other drugs, medicaments and biological substances ==

== ENCOUNTER 2020-08-31 13:43 | Inpatient (IN) | payer MEDICARE ==
[~2020-08-31] VITALS: Ht 152.4 cm; Wt 63.2 kg
[2020-08-31] VITALS (10 sets, daily range): BP systolic 92–222; BP diastolic 33–80
[2020-08-31 15:42] LABS: BASO % 0.5 % (0.0-1.0); EOS # 0.2 10*3/uL (0.0-0.4); EOS % 2.4 % (1.0-4.0); HEMATOCRIT 41.7 % (37.0-47.0); LYMPH # 2.2 10*3/uL (1.3-4.4); LYMPH % 25.5 % (27.0-41.0); MEAN CELL VOLUME 90.5 fl (81.0-99.0); MEAN CORPUSCULAR HGB 30.4 pg (27.0-31.0); MEAN CORPUSCULAR HGB CONC 33.6 g/dl (33.0-37.0); MEAN PLATELET VOLUME 9.8 fl (9.6-12.3); MONO # 0.7 10*3/uL (0.1-1.0); MONO % 8.4 % (3.0-9.0); NEUT # 5.4 10*3/uL (2.3-7.9); PLATELET COUNT AUTOMATED 251 10*3/uL (130-400); RED BLOOD COUNT 4.61 10*6/uL (4.10-5.10); RED CELL DISTRI WIDTH 12.3 % (0-14.5); WHITE BLOOD COUNT 8.6 10*3/uL (4.8-10.8)
[2020-08-31 15:45] LABS: ALBUMIN 3.7 gm/dl (3.1-4.5); ALKALINE PHOSPHATASE 121 U/L (45-117); BUN 14 mg/dl (7-24); CHLORIDE 106 mmol/L (98-107); CREATININE 0.89 mg/dL (0.55-1.02); LIPASE 92 U/L (73-393); POTASSIUM 4.1 mmol/L (3.5-5.1); SGOT/AST 20 IU/L (3-35); SGPT/ALT 19 U/L (12-78); SODIUM 140 mmol/L (136-145); TOTAL PROTEIN 7.5 gm/dL (6.4-8.2)
[2020-08-31 15:47] LABS: TROPONIN I < 0.015 ng/ml (<0.045)
[2020-09-01] VITALS: BP 121/42
[2020-09-01 06:51] LABS: BASO % 0.6 % (0.0-1.0); EOS # 0.3 10*3/uL (0.0-0.4); HEMATOCRIT 37.6 % (37.0-47.0); LYMPH # 2.8 10*3/uL (1.3-4.4); MEAN CELL VOLUME 93.1 fl (81.0-99.0); MEAN CORPUSCULAR HGB 30.4 pg (27.0-31.0); MEAN CORPUSCULAR HGB CONC 32.7 g/dl (33.0-37.0); MEAN PLATELET VOLUME 10.1 fl (9.6-12.3); MONO # 0.7 10*3/uL (0.1-1.0); NEUT % 44.3 % (47.0-73.0); PLATELET COUNT AUTOMATED 208 10*3/uL (130-400); RED BLOOD COUNT 4.04 10*6/uL (4.10-5.10); RED CELL DISTRI WIDTH 12.4 % (0-14.5); WHITE BLOOD COUNT 6.7 10*3/uL (4.8-10.8)
[2020-09-01 07:11] LABS: BUN 14 mg/dl (7-24); CHLORIDE 107 mmol/L (98-107); CREATININE 0.98 mg/dL (0.55-1.02); POTASSIUM 4.6 mmol/L (3.5-5.1); SODIUM 137 mmol/L (136-145)
[2020-09-01 07:18] LABS: FREE T4 1.37 ng/dl (0.76-1.46)
[2020-09-01 08:00] VITALS: BP 128/58; BP 129/49
[2020-09-01 16:00] VITALS: BP 124/41
[2020-09-01 20:00] VITALS: BP 118/74
[2020-09-02] VITALS: BP 144/41
[2020-09-02 08:00] VITALS: BP 118/50
[2020-09-02 12:00] VITALS: BP 127/55
== END 2020-09-02 15:53 | disposition home or self-care (01) | DRG 305 ==
LOC: ED 13:43 → EDHOLD 15:58 → 5E 15:58
PROVIDERS: Internal Medicine; Student in an Organized Health Care Education/Training Program; ADMIT Internal Medicine; ATTEND Internal Medicine
DX: I16.1 Hypertensive emergency (principal); R04.0 Epistaxis; E83.41 Hypermagnesemia; M47.816 Spondylosis without myelopathy or radiculopathy, lumbar region; K21.9 Gastro-esophageal reflux disease without esophagitis; I48.0 Paroxysmal atrial fibrillation; I12.9 Hypertensive chronic kidney disease with stage 1 through stage 4 chronic kidney disease, or unspecified chronic kidney disease; E78.5 Hyperlipidemia, unspecified; E03.9 Hypothyroidism, unspecified; N18.30 Chronic kidney disease, stage 3 unspecified; Z80.0 Family history of malignant neoplasm of digestive organs; Z83.6 Family history of other diseases of the respiratory system; Z88.2 Allergy status to sulfonamides; Z88.8 Allergy status to other drugs, medicaments and biological substances

== ENCOUNTER → 2020-10-18 | Outpatient (CLI) | payer MEDICARE | END | disposition home or self-care (01) | LOC: RESCLI 00:25 | PROVIDERS: ATTEND Internal Medicine | DX: E55.9 Vitamin D deficiency, unspecified (principal); I25.118 Atherosclerotic heart disease of native coronary artery with other forms of angina pectoris; M81.0 Age-related osteoporosis without current pathological fracture; I11.0 Hypertensive heart disease with heart failure; I50.32 Chronic diastolic (congestive) heart failure; E78.00 Pure hypercholesterolemia, unspecified; I48.20 Chronic atrial fibrillation, unspecified; R60.9 Edema, unspecified; K21.9 Gastro-esophageal reflux disease without esophagitis; E03.9 Hypothyroidism, unspecified; E78.5 Hyperlipidemia, unspecified; Z79.82 Long term (current) use of aspirin; Z79.899 Other long term (current) drug therapy ==

== ENCOUNTER → 2020-11-10 | Outpatient (CLI) | payer MEDICARE | END | disposition home or self-care (01) | LOC: CARD 11:46 | PROVIDERS: ATTEND Student in an Organized Health Care Education/Training Program | DX: I34.0 Nonrheumatic mitral (valve) insufficiency (principal); I51.7 Cardiomegaly; I50.32 Chronic diastolic (congestive) heart failure; R60.9 Edema, unspecified ==

== ENCOUNTER → 2020-12-20 | Outpatient (CLI) | payer MEDICARE | END | disposition home or self-care (01) | LOC: RESCLI 01:09 | PROVIDERS: ATTEND Internal Medicine | DX: I48.20 Chronic atrial fibrillation, unspecified (principal); M81.0 Age-related osteoporosis without current pathological fracture; E03.9 Hypothyroidism, unspecified; I11.0 Hypertensive heart disease with heart failure; I50.32 Chronic diastolic (congestive) heart failure; E78.00 Pure hypercholesterolemia, unspecified; I25.118 Atherosclerotic heart disease of native coronary artery with other forms of angina pectoris; E55.9 Vitamin D deficiency, unspecified; Z79.899 Other long term (current) drug therapy; Z98.890 Other specified postprocedural states; Z88.8 Allergy status to other drugs, medicaments and biological substances ==

== ENCOUNTER → 2021-03-14 | Outpatient (CLI) | payer MEDICARE | END | disposition home or self-care (01) | LOC: RESCLI 01:39 | PROVIDERS: ATTEND Internal Medicine | DX: M81.0 Age-related osteoporosis without current pathological fracture (principal); I25.118 Atherosclerotic heart disease of native coronary artery with other forms of angina pectoris; E55.9 Vitamin D deficiency, unspecified; E03.9 Hypothyroidism, unspecified; I50.32 Chronic diastolic (congestive) heart failure; I11.0 Hypertensive heart disease with heart failure; E78.00 Pure hypercholesterolemia, unspecified; Z79.899 Other long term (current) drug therapy; E78.5 Hyperlipidemia, unspecified; K21.9 Gastro-esophageal reflux disease without esophagitis; Z98.890 Other specified postprocedural states; Z82.49 Family history of ischemic heart disease and other diseases of the circulatory system; Z88.8 Allergy status to other drugs, medicaments and biological substances ==

== ENCOUNTER → 2021-08-18 | Outpatient (CLI) | payer MEDICARE | END | disposition home or self-care (01) | LOC: RESCLI 10:27 | PROVIDERS: ATTEND Internal Medicine | DX: I11.0 Hypertensive heart disease with heart failure (principal); I25.118 Atherosclerotic heart disease of native coronary artery with other forms of angina pectoris; M81.0 Age-related osteoporosis without current pathological fracture; E55.9 Vitamin D deficiency, unspecified; I48.20 Chronic atrial fibrillation, unspecified; I50.32 Chronic diastolic (congestive) heart failure; E78.00 Pure hypercholesterolemia, unspecified; E03.9 Hypothyroidism, unspecified; J06.9 Acute upper respiratory infection, unspecified; Z79.899 Other long term (current) drug therapy; Z88.8 Allergy status to other drugs, medicaments and biological substances ==

== ENCOUNTER → 2022-02-05 | Outpatient (CLI) | payer MEDICARE ==
[2022-02-05 10:39] LABS: BASO % 0.5 % (0.0-1.0); EOS # 0.3 10*3/uL (0.0-0.4); HEMATOCRIT 42.4 % (37.0-47.0); LYMPH # 2.1 10*3/uL (1.3-4.4); MEAN CELL VOLUME 92.6 fl (81.0-99.0); MEAN CORPUSCULAR HGB 30.6 pg (27.0-31.0); MEAN PLATELET VOLUME 9.7 fl (9.6-12.3); MONO # 0.6 10*3/uL (0.1-1.0); MONO % 7.7 % (3.0-9.0); NEUT # 4.9 10*3/uL (2.3-7.9); NEUT % 61.5 % (47.0-73.0); PLATELET COUNT AUTOMATED 221 10*3/uL (130-400); RED BLOOD COUNT 4.58 10*6/uL (4.10-5.10); RED CELL DISTRI WIDTH 12.4 % (0-14.5); WHITE BLOOD COUNT 7.9 10*3/uL (4.8-10.8)
[2022-02-05 10:57] LABS: ALKALINE PHOSPHATASE 119 U/L (45-117); BUN 16 mg/dl (7-24); CHLORIDE 106 mmol/L (98-107); CHOLESTEROL 178 mg/dL (<200); CREATININE 0.98 mg/dL (0.55-1.02); LDL CHOLESTEROL 87 mg/dL (9-159); POTASSIUM 3.9 mmol/L (3.5-5.1); SGOT/AST 21 IU/L (3-35); SGPT/ALT 21 U/L (12-78); SODIUM 139 mmol/L (136-145); TOTAL PROTEIN 7.7 gm/dL (6.4-8.2); TRIGLYCERIDES 125 mg/dl (<150)
== END | disposition home or self-care (01) ==
LOC: RESCLI 07:20
PROVIDERS: Student in an Organized Health Care Education/Training Program; ATTEND Internal Medicine
DX: Z23 Encounter for immunization (principal); I11.0 Hypertensive heart disease with heart failure; I50.32 Chronic diastolic (congestive) heart failure; Z11.59 Encounter for screening for other viral diseases; Z12.11 Encounter for screening for malignant neoplasm of colon; Z12.39 Encounter for other screening for malignant neoplasm of breast; E55.9 Vitamin D deficiency, unspecified; E03.9 Hypothyroidism, unspecified; E78.00 Pure hypercholesterolemia, unspecified; M85.80 Other specified disorders of bone density and structure, unspecified site; M81.0 Age-related osteoporosis without current pathological fracture; I48.20 Chronic atrial fibrillation, unspecified; I25.118 Atherosclerotic heart disease of native coronary artery with other forms of angina pectoris; Z88.8 Allergy status to other drugs, medicaments and biological substances; Z79.01 Long term (current) use of anticoagulants; Z98.890 Other specified postprocedural states; Z79.899 Other long term (current) drug therapy; Z95.5 Presence of coronary angioplasty implant and graft

== ENCOUNTER → 2022-02-16 | Outpatient (CLI) | payer MEDICARE | END | disposition home or self-care (01) | LOC: RAD 02-12 08:00 | PROVIDERS: ATTEND Internal Medicine | DX: M85.80 Other specified disorders of bone density and structure, unspecified site (principal); M85.9 Disorder of bone density and structure, unspecified; Z78.0 Asymptomatic menopausal state ==

== ENCOUNTER → 2022-02-22 | Outpatient (CLI) | payer MEDICARE | END | disposition home or self-care (01) | LOC: MAMMO 08:07 | PROVIDERS: ATTEND Internal Medicine | DX: Z12.39 Encounter for other screening for malignant neoplasm of breast (principal); R92.2 Inconclusive mammogram; N64.9 Disorder of breast, unspecified ==

== ENCOUNTER 2022-03-31 12:07 | Emergency (ER) | payer MEDICARE ==
[~2022-03-31] VITALS: Ht 152.4 cm; Wt 60.8 kg
[2022-03-31 15:21] VITALS: BP 165/44
[2022-03-31] MEDS ORDERED: BENZONATATE100 M1 PO ×3 (17:23→18:26)
[2022-03-31] MEDS ORDERED: PREDNISONE20 M1 PO ×3 (17:23→18:26)
== END 2022-03-31 22:50 | disposition home or self-care (01) ==
LOC: ED 12:07
DX: J40 Bronchitis, not specified as acute or chronic (principal); Z20.822 Contact with and (suspected) exposure to COVID-19; Z88.8 Allergy status to other drugs, medicaments and biological substances; Z88.1 Allergy status to other antibiotic agents; Z79.899 Other long term (current) drug therapy; Z98.890 Other specified postprocedural states

== ENCOUNTER → 2022-04-09 | Outpatient (CLI) | payer MEDICARE ==
[~2022-04-09] MED LIST changes: +BENZONATATE100 M1 PO
== END | disposition home or self-care (01) ==
LOC: RESCLI 01:55
PROVIDERS: ATTEND Internal Medicine
DX: I11.0 Hypertensive heart disease with heart failure (principal); I50.32 Chronic diastolic (congestive) heart failure; J32.9 Chronic sinusitis, unspecified; E55.9 Vitamin D deficiency, unspecified; M81.0 Age-related osteoporosis without current pathological fracture; J30.9 Allergic rhinitis, unspecified; I25.118 Atherosclerotic heart disease of native coronary artery with other forms of angina pectoris; E03.9 Hypothyroidism, unspecified; I48.20 Chronic atrial fibrillation, unspecified; E78.00 Pure hypercholesterolemia, unspecified; Z98.890 Other specified postprocedural states; Z88.8 Allergy status to other drugs, medicaments and biological substances; Z79.01 Long term (current) use of anticoagulants; Z79.899 Other long term (current) drug therapy

== ENCOUNTER → 2022-07-16 | Outpatient (CLI) | payer MEDICARE | END | disposition home or self-care (01) | LOC: RESCLI 01:24 | PROVIDERS: ATTEND Internal Medicine | DX: I11.0 Hypertensive heart disease with heart failure (principal); I50.32 Chronic diastolic (congestive) heart failure; E78.00 Pure hypercholesterolemia, unspecified; E55.9 Vitamin D deficiency, unspecified; M81.0 Age-related osteoporosis without current pathological fracture; E03.9 Hypothyroidism, unspecified; I48.20 Chronic atrial fibrillation, unspecified; Z88.8 Allergy status to other drugs, medicaments and biological substances; J32.9 Chronic sinusitis, unspecified; Z82.49 Family history of ischemic heart disease and other diseases of the circulatory system; Z98.890 Other specified postprocedural states; Z79.01 Long term (current) use of anticoagulants; Z79.899 Other long term (current) drug therapy ==

== ENCOUNTER → 2022-07-30 | Outpatient (CLI) | payer MEDICARE ==
[2022-07-30 15:45] LABS: BILIRUBIN Negative (Negative); BLOOD Negative (Negative); CLARITY Clear (Clear); COLOR Yellow (Yellow); GLUCOSE Negative (Negative); KETONE Negative (Negative); LEUKO ESTERASE Trace (Negative); NITRITE Negative (Negative); SPECIFIC GRAVITY <= 1.005 (1.001-1.030); UROBILINOGEN 0.2 E.U./dl (0.0-1.0)
[2022-07-30 15:59] LABS: RBC 0-2 rbc/hpf (0-2)
== END | disposition home or self-care (01) ==
LOC: LAB 15:18
PROVIDERS: ATTEND Student in an Organized Health Care Education/Training Program
DX: R30.0 Dysuria (principal)

== ENCOUNTER → 2022-08-06 | Outpatient (CLI) | payer MEDICARE | END | disposition home or self-care (01) | LOC: LAB 00:19 | PROVIDERS: ATTEND Student in an Organized Health Care Education/Training Program | DX: E55.9 Vitamin D deficiency, unspecified (principal) ==

== ENCOUNTER → 2022-08-30 | Day surgery (SDC) | payer MEDICARE ==
[~2022-08-30] VITALS: Ht 152.4 cm; Wt 59.0 kg
[2022-08-30 07:00] VITALS: BP 122/55
[2022-08-30 07:59] VITALS: BP 101/40
[2022-08-30 08:15] VITALS: BP 105/48
[2022-08-30 08:29] VITALS: BP 122/46
== END | disposition home or self-care (01) ==
LOC: SDC 08-27 09:30
PROVIDERS: ATTEND Surgery
DX: Z12.11 Encounter for screening for malignant neoplasm of colon (principal); K57.30 Diverticulosis of large intestine without perforation or abscess without bleeding; J45.909 Unspecified asthma, uncomplicated; K21.9 Gastro-esophageal reflux disease without esophagitis; I10 Essential (primary) hypertension; E03.9 Hypothyroidism, unspecified; E78.00 Pure hypercholesterolemia, unspecified; I48.91 Unspecified atrial fibrillation; I25.10 Atherosclerotic heart disease of native coronary artery without angina pectoris; Z79.899 Other long term (current) drug therapy
CPT/HCPCS: 00812; G0105

== ENCOUNTER 2022-11-30 12:34 | Emergency (ER) | payer MEDICARE ==
[~2022-11-30] VITALS: Ht 152.4 cm; Wt 58.5 kg
[2022-11-30 12:39] VITALS: BP 179/49
[2022-11-30 13:12] LABS: BASO # 0.1 10*3/uL (0.0-0.1); BASO % 0.6 % (0.0-1.0); EOS # 0.2 10*3/uL (0.0-0.4); EOS % 3.1 % (1.0-4.0); HEMATOCRIT 39.5 % (37.0-47.0); LYMPH # 1.8 10*3/uL (1.3-4.4); LYMPH % 22.6 % (27.0-41.0); MEAN CORPUSCULAR HGB 30.2 pg (27.0-31.0); MEAN CORPUSCULAR HGB CONC 33.2 g/dl (33.0-37.0); MEAN PLATELET VOLUME 9.7 fl (9.6-12.3); MONO # 0.6 10*3/uL (0.1-1.0); MONO % 8.3 % (3.0-9.0); PLATELET COUNT AUTOMATED 229 10*3/uL (130-400); RED BLOOD COUNT 4.34 10*6/uL (4.10-5.10); RED CELL DISTRI WIDTH 12.7 % (0-14.5); WHITE BLOOD COUNT 7.7 10*3/uL (4.8-10.8)
[2022-11-30 13:24] LABS: ACT PARTIAL THROMBO TIME 32.3 SECONDS (20.0-32.1); INTERNATIONAL NORM RATIO 1.1 (2.0-3.5)
[2022-11-30 13:45] LABS: ALKALINE PHOSPHATASE 114 U/L (46-116); BUN 15 mg/dl (9-23); CHLORIDE 103 mmol/L (98-107); LIPASE 33 U/L (12-53); POTASSIUM 4.2 mmol/L (3.4-5.1); SGPT/ALT 13 U/L (10-49); TOTAL PROTEIN 7.4 gm/dL (6.0-8.0)
[2022-11-30 14:04] LABS: BILIRUBIN Negative (Negative); BLOOD Negative (Negative); CLARITY Clear (Clear); COLOR Yellow (Yellow); GLUCOSE Negative (Negative); KETONE Negative (Negative); LEUKO ESTERASE 1+ (Negative); NITRITE Negative (Negative); SPECIFIC GRAVITY 1.015 (1.001-1.030)
[2022-11-30 14:23] LABS: BACTERIA 1+; RBC 0-2 rbc/hpf (0-2)
[2022-11-30] MEDS ORDERED: SEPTDS PO (14:47)
== END 2022-11-30 14:53 | disposition home or self-care (01) ==
LOC: ED 12:34
PROVIDERS: Internal Medicine
DX: N39.0 Urinary tract infection, site not specified (principal); R53.1 Weakness; M79.602 Pain in left arm; R06.02 Shortness of breath; R45.89 Other symptoms and signs involving emotional state; I10 Essential (primary) hypertension; Z88.8 Allergy status to other drugs, medicaments and biological substances; Z88.1 Allergy status to other antibiotic agents; Z79.899 Other long term (current) drug therapy

== ENCOUNTER → 2023-03-29 | Outpatient (CLI) | payer MEDICARE ==
[~2023-03-29] MED LIST changes: +SEPTDS PO
[2023-03-29 11:51] LABS: BASO % 0.2 % (0.0-1.0); EOS # 0.3 10*3/uL (0.0-0.4); EOS % 3.7 % (1.0-4.0); HEMATOCRIT 38.8 % (37.0-47.0); LYMPH # 2.2 10*3/uL (1.3-4.4); LYMPH % 26.7 % (27.0-41.0); MEAN CELL VOLUME 90.7 fl (81.0-99.0); MEAN CORPUSCULAR HGB 30.4 pg (27.0-31.0); MEAN CORPUSCULAR HGB CONC 33.5 g/dl (33.0-37.0); MEAN PLATELET VOLUME 9.7 fl (9.6-12.3); MONO # 0.6 10*3/uL (0.1-1.0); NEUT # 4.9 10*3/uL (2.3-7.9); NEUT % 61.2 % (47.0-73.0); PLATELET COUNT AUTOMATED 221 10*3/uL (130-400); RED BLOOD COUNT 4.28 10*6/uL (4.10-5.10); RED CELL DISTRI WIDTH 12.4 % (0-14.5); WHITE BLOOD COUNT 8.1 10*3/uL (4.8-10.8)
[2023-03-29 13:17] LABS: ALKALINE PHOSPHATASE 114 U/L (46-116); BUN 11 mg/dl (9-23); CHLORIDE 106 mmol/L (98-107); CHOLESTEROL 197 mg/dL (<200); LDL CHOLESTEROL 113 mg/dL (9-159); SGPT/ALT 13 U/L (5-49); TOTAL PROTEIN 7.1 gm/dL (6.0-8.0); TRIGLYCERIDES 89 mg/dl (<150)
== END | disposition home or self-care (01) ==
LOC: LAB 10:55
PROVIDERS: ATTEND Nurse Practitioner Family
DX: I10 Essential (primary) hypertension (principal); E03.9 Hypothyroidism, unspecified; F32.A Depression, unspecified; F41.9 Anxiety disorder, unspecified

== ENCOUNTER → 2023-05-30 | Outpatient (CLI) | payer MEDICARE | END | disposition home or self-care (01) | LOC: LAB 11:49 | PROVIDERS: ATTEND Nurse Practitioner Family | DX: F41.9 Anxiety disorder, unspecified (principal); E05.90 Thyrotoxicosis, unspecified without thyrotoxic crisis or storm ==

== ENCOUNTER → 2023-07-15 | Outpatient (CLI) | payer MEDICARE | END | disposition home or self-care (01) | LOC: RESCLI 13:52 | PROVIDERS: ATTEND Internal Medicine | DX: I11.0 Hypertensive heart disease with heart failure (principal); I50.32 Chronic diastolic (congestive) heart failure; I48.0 Paroxysmal atrial fibrillation; E03.9 Hypothyroidism, unspecified; F41.9 Anxiety disorder, unspecified; K21.9 Gastro-esophageal reflux disease without esophagitis; I25.118 Atherosclerotic heart disease of native coronary artery with other forms of angina pectoris; E55.9 Vitamin D deficiency, unspecified; M81.0 Age-related osteoporosis without current pathological fracture; E78.00 Pure hypercholesterolemia, unspecified; J30.9 Allergic rhinitis, unspecified; Z79.899 Other long term (current) drug therapy ==

== ENCOUNTER 2023-08-04 09:54 | Inpatient (IN) | payer MEDICARE ==
[~2023-08-04] VITALS: Ht 154.9 cm; Wt 59.9 kg
[2023-08-04 10:00] VITALS: BP 154/43
[2023-08-04] MEDS ORDERED: Metoclopramide Hydrochloride 10 MG/2 ML AMP IV ONE (10:00)
[2023-08-04] MEDS ORDERED: diphenhydrAMINE hydrochloride 50 MG/ML VIAL IV ONE (10:00)
[2023-08-04] MEDS ORDERED: MORPHINE Sulfate 2 MG/ML SYR IV ONE (10:00)
[2023-08-04] MEDS ORDERED: Albuterol Sulfate 2.5 MG/3 ML VIAL NEB ONE (10:00)
[2023-08-04] MEDS ORDERED: IOHEXOL 300 MG/ML 100 ML VIAL IV ONE (10:05)
[2023-08-04 10:52] LABS: BASO % 0.2 % (0.0-1.0); EOS # 0.1 10*3/uL (0.0-0.4); EOS % 0.5 % (1.0-4.0); HEMATOCRIT 47.3 % (37.0-47.0); LYMPH # 1.3 10*3/uL (1.3-4.4); LYMPH % 8.3 % (27.0-41.0); MEAN CORPUSCULAR HGB 29.6 pg (27.0-31.0); MEAN CORPUSCULAR HGB CONC 32.1 g/dl (33.0-37.0); MEAN PLATELET VOLUME 9.4 fl (9.6-12.3); MONO # 0.8 10*3/uL (0.1-1.0); MONO % 4.8 % (3.0-9.0); NEUT # 13.8 10*3/uL (2.3-7.9); PLATELET COUNT AUTOMATED 269 10*3/uL (130-400); RED BLOOD COUNT 5.14 10*6/uL (4.10-5.10); RED CELL DISTRI WIDTH 12.7 % (0-14.5); WHITE BLOOD COUNT 16.1 10*3/uL (4.8-10.8)
[2023-08-04 11:02] LABS: ACT PARTIAL THROMBO TIME 28.3 SECONDS (20.0-32.1)
[2023-08-04 11:11] LABS: POTASSIUM 4.6 mmol/L (3.4-5.1); TOTAL PROTEIN 7.2 gm/dL (6.0-8.0)
[2023-08-04] MEDS ORDERED: Piperacillin Sodium/Tazobact 50 ML IV ONE (11:45)
[2023-08-04] MEDS ORDERED: SODIUM CHLORIDE 0.9% 1,000 ML IV ONE ×2 (11:45→12:40)
[2023-08-04 12:22] VITALS: BP 128/74
[2023-08-04] MEDS ORDERED: ACETAMINOPHEN 325 MG TAB PO PRN (13:15)
[2023-08-04] MEDS ORDERED: Ondansetron Hydrochloride 4 MG/2 ML VIAL IV PRN (13:15)
[2023-08-04] MEDS ORDERED: BISACODYL 5 MG TAB PO PRN (13:15)
[2023-08-04] MEDS ORDERED: Acetaminophen/Hydrocodone 5 MG/325 MG TABLET PO PRN (13:15)
[2023-08-04] MEDS ORDERED: SODIUM CHLORIDE 0.9% 1,000 ML IV SCH (13:30)
[2023-08-04 13:47] VITALS: BP 138/47
[2023-08-04 14:00] VITALS: BP 151/45
[2023-08-04 16:00] VITALS: BP 124/40
[2023-08-04] MEDS ORDERED: Piperacillin Sodium/Tazobact 2.25 GM in SODIUM CHLORIDE 0.9% 50 ML IV SCH (18:00)
[2023-08-04] MEDS ORDERED: FLUOXETINE HCL10 M1 PO (18:22)
[2023-08-04 20:00] VITALS: BP 122/44
[2023-08-04 23:56] LABS: BILIRUBIN Negative (Negative); BLOOD Negative (Negative); CLARITY Clear (Clear); COLOR Yellow (Yellow); GLUCOSE Negative (Negative); KETONE Negative (Negative); NITRITE Negative (Negative); SPECIFIC GRAVITY >= 1.030 (1.001-1.030); UROBILINOGEN 0.2 E.U./dl (0.0-1.0)
[2023-08-05] VITALS: BP 127/39
[2023-08-05 00:06] LABS: LEUKO ESTERASE Trace (Negative); RBC 0-2 rbc/hpf (0-2)
[2023-08-05 00:07] LABS: BACTERIA 1+; FINE GRANULAR CAST 0-2; MUCOUS 1+
[2023-08-05] MEDS ORDERED: Pantoprazole Sodium 40 MG VIAL IV SCH (06:00)
[2023-08-05 06:02] LABS: ALKALINE PHOSPHATASE 77 U/L (46-116); BUN 13 mg/dl (9-23); CHLORIDE 110 mmol/L (98-107); FREE T4 1.19 ng/dl (0.89-1.76); SGPT/ALT 10 U/L (5-49); TOTAL PROTEIN 5.9 gm/dL (6.0-8.0)
[2023-08-05 06:07] LABS: BASO % 0.3 % (0.0-1.0); EOS # 0.1 10*3/uL (0.0-0.4); EOS % 1.5 % (1.0-4.0); HEMATOCRIT 36.6 % (37.0-47.0); LYMPH # 2.5 10*3/uL (1.3-4.4); LYMPH % 27.5 % (27.0-41.0); MEAN CELL VOLUME 93.1 fl (81.0-99.0); MEAN CORPUSCULAR HGB 29.8 pg (27.0-31.0); MEAN PLATELET VOLUME 9.6 fl (9.6-12.3); MONO # 1.1 10*3/uL (0.1-1.0); NEUT # 5.4 10*3/uL (2.3-7.9); NEUT % 58.5 % (47.0-73.0); PLATELET COUNT AUTOMATED 223 10*3/uL (130-400); RED BLOOD COUNT 3.93 10*6/uL (4.10-5.10); WHITE BLOOD COUNT 9.2 10*3/uL (4.8-10.8)
[2023-08-05 08:00] VITALS: BP 125/52
[2023-08-05] MEDS ORDERED: Enoxaparin Sodium 40 MG/0.4 ML SYR SC SCH (10:00)
[2023-08-05] MEDS ORDERED: RIVAROXABAN 15 MG TAB PO SCH (10:00)
[2023-08-05 12:00] VITALS: BP 150/52
[2023-08-05] MEDS ORDERED: Propafenone Hydrochloride 150 MG TAB PO SCH (14:00)
[2023-08-05 16:00] VITALS: BP 178/42
[2023-08-05 20:00] VITALS: BP 150/48
[2023-08-05] MEDS ORDERED: LISINOPRIL 20 MG TAB PO SCH (22:00)
[2023-08-05] MEDS ORDERED: CARVEDILOL 12.5 MG TAB PO SCH (22:00)
[2023-08-06] VITALS: BP 139/62
[2023-08-06] MEDS ORDERED: Levothyroxine Sodium 125 MCG TAB PO SCH (06:00)
[2023-08-06] MEDS ORDERED: Pantoprazole Sodium 20 MG TAB PO SCH (06:00)
[2023-08-06 06:54] LABS: BASO % 0.4 % (0.0-1.0); EOS # 0.4 10*3/uL (0.0-0.4); EOS % 4.9 % (1.0-4.0); HEMATOCRIT 34.5 % (37.0-47.0); LYMPH # 2.6 10*3/uL (1.3-4.4); LYMPH % 34.1 % (27.0-41.0); MEAN CELL VOLUME 92.2 fl (81.0-99.0); MEAN CORPUSCULAR HGB 30.5 pg (27.0-31.0); MEAN PLATELET VOLUME 9.6 fl (9.6-12.3); MONO # 0.8 10*3/uL (0.1-1.0); MONO % 10.7 % (3.0-9.0); NEUT # 3.7 10*3/uL (2.3-7.9); NEUT % 49.8 % (47.0-73.0); PLATELET COUNT AUTOMATED 200 10*3/uL (130-400); RED BLOOD COUNT 3.74 10*6/uL (4.10-5.10); WHITE BLOOD COUNT 7.5 10*3/uL (4.8-10.8)
[2023-08-06 07:16] LABS: BUN 9 mg/dl (9-23); CHLORIDE 108 mmol/L (98-107); POTASSIUM 3.6 mmol/L (3.4-5.1)
[2023-08-06 08:00] VITALS: BP 150/52
[2023-08-06] MEDS ORDERED: ATORVASTATIN CALCIUM 10 MG TAB PO SCH (10:00)
[2023-08-06] MEDS ORDERED: Fish Oil 1,000 MG CAP PO SCH (10:00)
[2023-08-06] MEDS ORDERED: amLODIPine besylate 5 MG TAB PO SCH (10:00)
[2023-08-06] MEDS ORDERED: Cholecalciferol 2,000 UNIT TABLET (50 MCG) PO SCH (10:00)
[2023-08-06] MEDS ORDERED: FUROSEMIDE 20 MG TAB PO SCH (10:00)
[2023-08-06 12:00] VITALS: BP 121/50
[2023-08-06] MEDS ORDERED: PANTOPRAZOLE SO20 MG PO (12:23)
[2023-08-06] MEDS ORDERED: AMOX-CLAV 875-1 EACH PO (12:23)
[2023-08-06 16:00] VITALS: BP 158/52
[2023-08-06 20:00] VITALS: BP 152/59
[2023-08-07] VITALS: BP 140/50
[2023-08-07 08:00] VITALS: BP 165/50
[2023-08-07 12:00] VITALS: BP 155/52
== END 2023-08-07 14:10 | disposition home or self-care (01) | DRG 371 ==
LOC: ED 09:54 → EDHOLD 12:45 → 4E 12:45
PROVIDERS: Emergency Medicine; Family Medicine; Student in an Organized Health Care Education/Training Program; ADMIT Family Medicine; ATTEND Family Medicine
DX: A04.8 Other specified bacterial intestinal infections (principal); N17.0 Acute kidney failure with tubular necrosis; E87.20 Acidosis, unspecified; K29.70 Gastritis, unspecified, without bleeding; N18.30 Chronic kidney disease, stage 3 unspecified; I12.9 Hypertensive chronic kidney disease with stage 1 through stage 4 chronic kidney disease, or unspecified chronic kidney disease; K21.9 Gastro-esophageal reflux disease without esophagitis; K57.30 Diverticulosis of large intestine without perforation or abscess without bleeding; I48.0 Paroxysmal atrial fibrillation; E03.9 Hypothyroidism, unspecified; K76.0 Fatty (change of) liver, not elsewhere classified; E78.5 Hyperlipidemia, unspecified; Z82.5 Family history of asthma and other chronic lower respiratory diseases; Z88.1 Allergy status to other antibiotic agents; Z88.2 Allergy status to sulfonamides; Z88.8 Allergy status to other drugs, medicaments and biological substances; Z79.899 Other long term (current) drug therapy

== ENCOUNTER → 2023-08-26 | Outpatient (CLI) | payer MEDICARE ==
[~2023-08-26] MED LIST changes: +AMOX-CLAV 875-1 EACH PO; +FLUOXETINE HCL10 M1 PO; +PANTOPRAZOLE SO20 MG PO
[2023-08-26 11:23] LABS: BASO % 0.6 % (0.0-1.0); EOS # 0.4 10*3/uL (0.0-0.4); EOS % 6.2 % (1.0-4.0); HEMATOCRIT 41.8 % (37.0-47.0); LYMPH # 2.2 10*3/uL (1.3-4.4); LYMPH % 34.8 % (27.0-41.0); MEAN CELL VOLUME 91.3 fl (81.0-99.0); MEAN CORPUSCULAR HGB 29.9 pg (27.0-31.0); MEAN CORPUSCULAR HGB CONC 32.8 g/dl (33.0-37.0); MEAN PLATELET VOLUME 9.7 fl (9.6-12.3); MONO # 0.6 10*3/uL (0.1-1.0); MONO % 9.2 % (3.0-9.0); NEUT # 3.1 10*3/uL (2.3-7.9); NEUT % 48.9 % (47.0-73.0); PLATELET COUNT AUTOMATED 251 10*3/uL (130-400); RED BLOOD COUNT 4.58 10*6/uL (4.10-5.10); RED CELL DISTRI WIDTH 12.8 % (0-14.5); WHITE BLOOD COUNT 6.3 10*3/uL (4.8-10.8)
[2023-08-26 11:43] LABS: ALKALINE PHOSPHATASE 97 U/L (46-116); BUN 20 mg/dl (9-23); CHLORIDE 101 mmol/L (98-107); CHOLESTEROL 285 mg/dL (<200); LDL CHOLESTEROL 181 mg/dL (9-159); SGPT/ALT 11 U/L (5-49); TOTAL PROTEIN 7.5 gm/dL (6.0-8.0); TRIGLYCERIDES 183 mg/dl (<150)
== END | disposition home or self-care (01) ==
LOC: LAB 10:52
PROVIDERS: ATTEND Nurse Practitioner Family
DX: I10 Essential (primary) hypertension (principal); E03.9 Hypothyroidism, unspecified

== ENCOUNTER → 2023-10-04 | Outpatient (CLI) | payer MEDICARE ==
[2023-10-04 15:14] LABS: BASO % 0.5 % (0.0-1.0); EOS # 0.3 10*3/uL (0.0-0.4); EOS % 4.6 % (1.0-4.0); HEMATOCRIT 39.8 % (37.0-47.0); LYMPH # 2.1 10*3/uL (1.3-4.4); LYMPH % 35.4 % (27.0-41.0); MEAN CELL VOLUME 91.3 fl (81.0-99.0); MEAN CORPUSCULAR HGB 30.3 pg (27.0-31.0); MEAN CORPUSCULAR HGB CONC 33.2 g/dl (33.0-37.0); MEAN PLATELET VOLUME 9.5 fl (9.6-12.3); MONO # 0.6 10*3/uL (0.1-1.0); MONO % 9.1 % (3.0-9.0); NEUT % 50.2 % (47.0-73.0); PLATELET COUNT AUTOMATED 254 10*3/uL (130-400); RED BLOOD COUNT 4.36 10*6/uL (4.10-5.10); RED CELL DISTRI WIDTH 12.5 % (0-14.5); WHITE BLOOD COUNT 6.1 10*3/uL (4.8-10.8)
[2023-10-04 15:36] LABS: POTASSIUM 3.9 mmol/L (3.4-5.1); TOTAL PROTEIN 7.6 gm/dL (6.0-8.0)
== END | disposition home or self-care (01) ==
LOC: LAB 14:37
PROVIDERS: ATTEND Nurse Practitioner Family
DX: N17.9 Acute kidney failure, unspecified (principal); K52.9 Noninfective gastroenteritis and colitis, unspecified; D72.829 Elevated white blood cell count, unspecified

== ENCOUNTER → 2023-12-09 | Outpatient (CLI) | payer MEDICARE ==
[2023-12-09 09:44] LABS: BASO # 0.1 10*3/uL (0.0-0.1); BASO % 0.9 % (0.0-1.0); EOS # 0.4 10*3/uL (0.0-0.4); EOS % 5.8 % (1.0-4.0); HEMATOCRIT 42.2 % (37.0-47.0); LYMPH # 1.8 10*3/uL (1.3-4.4); LYMPH % 26.9 % (27.0-41.0); MEAN CELL VOLUME 91.1 fl (81.0-99.0); MEAN CORPUSCULAR HGB 30.2 pg (27.0-31.0); MEAN CORPUSCULAR HGB CONC 33.2 g/dl (33.0-37.0); MEAN PLATELET VOLUME 9.5 fl (9.6-12.3); MONO # 0.7 10*3/uL (0.1-1.0); MONO % 10.4 % (3.0-9.0); NEUT # 3.7 10*3/uL (2.3-7.9); NEUT % 55.7 % (47.0-73.0); PLATELET COUNT AUTOMATED 228 10*3/uL (130-400); RED BLOOD COUNT 4.63 10*6/uL (4.10-5.10); RED CELL DISTRI WIDTH 12.3 % (0-14.5); WHITE BLOOD COUNT 6.6 10*3/uL (4.8-10.8)
[2023-12-09 10:13] LABS: TOTAL PROTEIN 7.3 gm/dL (6.0-8.0)
== END | disposition home or self-care (01) ==
LOC: LAB 08:59
PROVIDERS: ATTEND Nurse Practitioner Family
DX: I10 Essential (primary) hypertension (principal); E03.9 Hypothyroidism, unspecified

== ENCOUNTER → 2024-02-04 | Outpatient (CLI) | payer MEDICARE | END | disposition home or self-care (01) | LOC: LAB 14:53 | PROVIDERS: ATTEND Nurse Practitioner Family | DX: I10 Essential (primary) hypertension (principal); E03.9 Hypothyroidism, unspecified ==

== ENCOUNTER 2024-07-27 17:03 | Inpatient (IN) | payer OTHER ==
[~2024-07-27] VITALS: Ht 152.4 cm; Wt 56.8 kg
[2024-07-27 17:09] VITALS: BP 178/56
[2024-07-27 17:44] LABS: BASO % 0.4 % (0.0-1.0); EOS # 0.3 10*3/uL (0.0-0.4); EOS % 3.6 % (1.0-4.0); HEMATOCRIT 40.5 % (37.0-47.0); MEAN CELL VOLUME 92.9 fl (81.0-99.0); MEAN CORPUSCULAR HGB 30.3 pg (27.0-31.0); MEAN CORPUSCULAR HGB CONC 32.6 g/dl (33.0-37.0); MEAN PLATELET VOLUME 9.9 fl (9.6-12.3); MONO # 0.6 10*3/uL (0.1-1.0); MONO % 7.9 % (3.0-9.0); NEUT % 62.8 % (47.0-73.0); PLATELET COUNT AUTOMATED 204 10*3/uL (130-400); RED BLOOD COUNT 4.36 10*6/uL (4.10-5.10); RED CELL DISTRI WIDTH 12.3 % (0-14.5)
[2024-07-27 18:05] LABS: POTASSIUM 4.1 mmol/L (3.4-5.1); TOTAL PROTEIN 7.2 gm/dL (6.0-8.0)
[2024-07-27 18:28] LABS: BILIRUBIN Negative (Negative); BLOOD Negative (Negative); CLARITY Clear (Clear); COLOR Yellow (Yellow); GLUCOSE Negative (Negative); KETONE Negative (Negative); LEUKO ESTERASE Trace (Negative); NITRITE Negative (Negative)
[2024-07-27 18:38] LABS: BACTERIA 1+
[2024-07-27] MEDS ORDERED: BISACODYL 5 MG TAB PO PRN (22:45)
[2024-07-27] MEDS ORDERED: Magnesium Hydroxide 30 ML UDC PO PRN (22:45)
[2024-07-27] MEDS ORDERED: ACETAMINOPHEN 325 MG TAB PO PRN (22:45)
[2024-07-27] MEDS ORDERED: Ondansetron Hydrochloride 4 MG/2 ML VIAL IV PRN (22:45)
[2024-07-27] MEDS ORDERED: BISACODYL 10 MG SUPP R PRN (22:45)
[2024-07-27] MEDS ORDERED: ACETAMINOPHEN 650 MG SUPP R PRN (22:45)
[2024-07-27 23:22] VITALS: BP 138/72
[2024-07-28 00:30] VITALS: BP 186/50
[2024-07-28] MEDS ORDERED: SODIUM CHLORIDE 0.9% 1,000 ML IV ONE (00:30)
[2024-07-28 02:26] VITALS: BP 132/56
[2024-07-28] MEDS ORDERED: Levothyroxine Sodium 125 MCG TAB PO SCH (06:00)
[2024-07-28] MEDS ORDERED: Pantoprazole Sodium 40 MG TAB PO SCH (06:00)
[2024-07-28 06:20] LABS: BASO # 0.1 10*3/uL (0.0-0.1); BASO % 0.6 % (0.0-1.0); EOS # 0.4 10*3/uL (0.0-0.4); EOS % 4.1 % (1.0-4.0); HEMATOCRIT 40.7 % (37.0-47.0); MEAN CELL VOLUME 92.1 fl (81.0-99.0); MEAN CORPUSCULAR HGB 30.3 pg (27.0-31.0); MEAN CORPUSCULAR HGB CONC 32.9 g/dl (33.0-37.0); MEAN PLATELET VOLUME 9.5 fl (9.6-12.3); MONO # 0.7 10*3/uL (0.1-1.0); MONO % 8.5 % (3.0-9.0); NEUT # 4.2 10*3/uL (2.3-7.9); NEUT % 49.3 % (47.0-73.0); PLATELET COUNT AUTOMATED 241 10*3/uL (130-400); RED BLOOD COUNT 4.42 10*6/uL (4.10-5.10); RED CELL DISTRI WIDTH 12.4 % (0-14.5); WHITE BLOOD COUNT 8.5 10*3/uL (4.8-10.8)
[2024-07-28 06:36] LABS: ACT PARTIAL THROMBO TIME 27.9 SECONDS (20.0-32.1)
[2024-07-28 06:38] LABS: FREE T4 1.33 ng/dl (0.89-1.76); POTASSIUM 3.8 mmol/L (3.4-5.1)
[2024-07-28 06:58] LABS: VITAMIN D, 25-HYDROXY 70.9 ng/mL (30-100)
[2024-07-28 08:00] VITALS: BP 157/39
[2024-07-28] MEDS ORDERED: Propafenone Hydrochloride 150 MG TAB PO SCH (10:00)
[2024-07-28] MEDS ORDERED: FLUOXETINE HYDROCHLORIDE PO SCH (10:00)
[2024-07-28] MEDS ORDERED: amLODIPine besylate 5 MG TAB PO SCH (10:00)
[2024-07-28] MEDS ORDERED: ATORVASTATIN CALCIUM 10 MG TAB PO SCH (10:00)
[2024-07-28] MEDS ORDERED: RIVAROXABAN 20 MG TAB PO SCH (10:00)
[2024-07-28 12:00] VITALS: BP 119/42
[2024-07-28 16:00] VITALS: BP 176/56
[2024-07-28 20:00] VITALS: BP 155/50
[2024-07-29] VITALS: BP 148/88
[2024-07-29] MEDS ORDERED: Levothyroxine Sodium 125 MCG TAB PO SCH (06:00)
[2024-07-29 06:24] LABS: BASO % 0.4 % (0.0-1.0); EOS # 0.4 10*3/uL (0.0-0.4); EOS % 5.5 % (1.0-4.0); HEMATOCRIT 36.3 % (37.0-47.0); MEAN CELL VOLUME 90.8 fl (81.0-99.0); MEAN CORPUSCULAR HGB 30.3 pg (27.0-31.0); MEAN CORPUSCULAR HGB CONC 33.3 g/dl (33.0-37.0); MEAN PLATELET VOLUME 9.7 fl (9.6-12.3); MONO # 0.7 10*3/uL (0.1-1.0); MONO % 9.6 % (3.0-9.0); NEUT # 3.4 10*3/uL (2.3-7.9); NEUT % 44.6 % (47.0-73.0); PLATELET COUNT AUTOMATED 214 10*3/uL (130-400); RED CELL DISTRI WIDTH 12.5 % (0-14.5); WHITE BLOOD COUNT 7.6 10*3/uL (4.8-10.8)
[2024-07-29 06:29] LABS: BUN 12 mg/dl (9-23); CHLORIDE 105 mmol/L (98-107); POTASSIUM 3.9 mmol/L (3.4-5.1)
[2024-07-29 07:30] VITALS: BP 180/64
[2024-07-29 08:40] VITALS: BP 180/70
[2024-07-29] MEDS ORDERED: Losartan Potassium 25 MG TAB PO SCH (10:55)
[2024-07-29 12:00] VITALS: BP 118/43
[2024-07-29] MEDS ORDERED: LOSARTAN POTASS25 M1 PO (13:46)
[2024-07-29] MEDS ORDERED: LEVOTHYROXINE125 MCG PO (13:46)
== END 2024-07-29 15:42 | disposition home or self-care (01) | DRG 73 ==
LOC: ED 17:03 → EDHOLD 22:18 → 4E 22:18
PROVIDERS: Internal Medicine; Student in an Organized Health Care Education/Training Program; ADMIT Internal Medicine; ATTEND Internal Medicine
DX: G90.89 Other disorders of autonomic nervous system (principal); N17.0 Acute kidney failure with tubular necrosis; E87.1 Hypo-osmolality and hyponatremia; I31.39 Other pericardial effusion (noninflammatory); R00.1 Bradycardia, unspecified; N18.30 Chronic kidney disease, stage 3 unspecified; I48.91 Unspecified atrial fibrillation; E78.5 Hyperlipidemia, unspecified; R27.0 Ataxia, unspecified; I12.9 Hypertensive chronic kidney disease with stage 1 through stage 4 chronic kidney disease, or unspecified chronic kidney disease; I44.0 Atrioventricular block, first degree; I48.0 Paroxysmal atrial fibrillation; E03.9 Hypothyroidism, unspecified; Z79.01 Long term (current) use of anticoagulants; Z82.5 Family history of asthma and other chronic lower respiratory diseases; Z88.1 Allergy status to other antibiotic agents; Z88.8 Allergy status to other drugs, medicaments and biological substances; Z79.899 Other long term (current) drug therapy

== ENCOUNTER → 2024-08-06 | Outpatient (CLI) | payer OTHER ==
[~2024-08-06] MED LIST changes: +LEVOTHYROXINE125 MCG PO; +LOSARTAN POTASS25 M1 PO
[2024-08-06 09:56] LABS: BASO % 0.4 % (0.0-1.0); EOS # 0.4 10*3/uL (0.0-0.4); EOS % 5.4 % (1.0-4.0); HEMATOCRIT 42.1 % (37.0-47.0); MEAN CELL VOLUME 93.3 fl (81.0-99.0); MEAN CORPUSCULAR HGB 30.4 pg (27.0-31.0); MEAN CORPUSCULAR HGB CONC 32.5 g/dl (33.0-37.0); MEAN PLATELET VOLUME 9.5 fl (9.6-12.3); MONO # 0.7 10*3/uL (0.1-1.0); NEUT # 3.6 10*3/uL (2.3-7.9); NEUT % 50.2 % (47.0-73.0); PLATELET COUNT AUTOMATED 256 10*3/uL (130-400); RED BLOOD COUNT 4.51 10*6/uL (4.10-5.10); RED CELL DISTRI WIDTH 12.7 % (0-14.5); WHITE BLOOD COUNT 7.1 10*3/uL (4.8-10.8)
[2024-08-06 10:24] LABS: ALKALINE PHOSPHATASE 108 U/L (46-116); BUN 9 mg/dl (9-23); CHLORIDE 102 mmol/L (98-107); POTASSIUM 4.2 mmol/L (3.4-5.1); SGPT/ALT 12 U/L (5-49); TOTAL PROTEIN 7.3 gm/dL (6.0-8.0)
== END | disposition home or self-care (01) ==
LOC: LAB 09:09
PROVIDERS: ATTEND Internal Medicine
DX: N17.0 Acute kidney failure with tubular necrosis (principal); G90.9 Disorder of the autonomic nervous system, unspecified; I44.0 Atrioventricular block, first degree

== ENCOUNTER → 2024-10-09 | Outpatient (CLI) | payer OTHER ==
[2024-10-09 17:59] LABS: BASO % 0.4 % (0.0-1.0); EOS # 0.3 10*3/uL (0.0-0.4); EOS % 4.4 % (1.0-4.0); HEMATOCRIT 35.4 % (37.0-47.0); MEAN CELL VOLUME 91.9 fl (81.0-99.0); MEAN CORPUSCULAR HGB 30.1 pg (27.0-31.0); MEAN CORPUSCULAR HGB CONC 32.8 g/dl (33.0-37.0); MEAN PLATELET VOLUME 10.6 fl (9.6-12.3); MONO # 0.7 10*3/uL (0.1-1.0); NEUT # 4.7 10*3/uL (2.3-7.9); NEUT % 61.7 % (47.0-73.0); PLATELET COUNT AUTOMATED 245 10*3/uL (130-400); RED BLOOD COUNT 3.85 10*6/uL (4.10-5.10); RED CELL DISTRI WIDTH 13.1 % (0-14.5); WHITE BLOOD COUNT 7.6 10*3/uL (4.8-10.8)
[2024-10-09 18:18] LABS: BUN 10 mg/dl (9-23); CHLORIDE 102 mmol/L (98-107); POTASSIUM 4.3 mmol/L (3.4-5.1)
== END | disposition home or self-care (01) ==
LOC: LAB 17:42
PROVIDERS: ATTEND Nurse Practitioner Family
DX: I10 Essential (primary) hypertension (principal); E03.9 Hypothyroidism, unspecified; I48.0 Paroxysmal atrial fibrillation

== ENCOUNTER 2025-02-01 21:30 | Inpatient (IN) | payer OTHER ==
[~2025-02-01] VITALS: Ht 154.9 cm; Wt 55.8 kg
[2025-02-01 21:34] VITALS: BP 171/53
[2025-02-01 22:12] VITALS: BP 168/48
[2025-02-01 22:16] LABS: BASO # 0.0 10*3/uL (0.0-0.1); BASO % 0.4 % (0.0-1.0); EOS # 0.0 10*3/uL (0.0-0.4); EOS % 0.3 % (1.0-4.0); MEAN CELL VOLUME 88.9 fl (81.0-99.0); MEAN CORPUSCULAR HGB 28.7 pg (27.0-31.0); MEAN PLATELET VOLUME 8.9 fl (9.6-12.3); MONO # 0.2 10*3/uL (0.1-1.0); MONO % 2.6 % (3.0-9.0); NEUT # 7.6 10*3/uL (2.3-7.9); NEUT % 83.4 % (47.0-73.0); NUCLEATED RED BLOOD CELL 0.0 % (0.0-0.0); NUCLEATED RED BLOOD CELL 0.0 10*3/uL (0.0-0.0); PLATELET COUNT AUTOMATED 275 10*3/uL (130-400); RED CELL DISTRI WIDTH 13.4 % (0-14.5)
[2025-02-01] MEDS ORDERED: SODIUM CHLORIDE 0.9% 1,000 ML IV ONE (22:35)
[2025-02-01 22:40] LABS: BUN 13 mg/dl (9-23)
[2025-02-01 22:42] VITALS: BP 172/50
[2025-02-01 23:42] VITALS: BP 142/43
[2025-02-02] VITALS (7 sets, daily range): BP systolic 143–163; BP diastolic 37–71
[2025-02-02] MEDS ORDERED: Synthroid,Lev150 MCG PO (01:04)
[2025-02-02] MEDS ORDERED: COREG6.25 MG PO (01:04)
[2025-02-02] MEDS ORDERED: PROTONIX20 MG PO (01:05)
[2025-02-02] MEDS ORDERED: LIPITOR20 MG PO (01:06)
[2025-02-02] MEDS ORDERED: ZESTRIL20 MG PO (01:06)
[2025-02-02] MEDS ORDERED: PROPAFENONE HY150 MG PO (01:06)
[2025-02-02] MEDS ORDERED: BISACODYL 5 MG TAB PO PRN (01:45)
[2025-02-02] MEDS ORDERED: Acetaminophen/Hydrocodone 5 MG/325 MG TABLET PO PRN (01:45)
[2025-02-02] MEDS ORDERED: ACETAMINOPHEN 650 MG SUPP R PRN (01:45)
[2025-02-02] MEDS ORDERED: BISACODYL 10 MG SUPP R PRN (01:45)
[2025-02-02] MEDS ORDERED: ACETAMINOPHEN 325 MG TAB PO PRN (01:45)
[2025-02-02] MEDS ORDERED: Ondansetron Hydrochloride 4 MG/2 ML VIAL IV PRN (01:45)
[2025-02-02] MEDS ORDERED: SODIUM CHLORIDE 0.9% 1,000 ML IV ONE (01:50)
[2025-02-02] MEDS ORDERED: ACETAMINOPHEN 80 ML IV ONE (01:50)
[2025-02-02] MEDS ORDERED: Metoclopramide Hydrochloride 10 MG/2 ML VIAL IV ONE (01:55)
[2025-02-02] MEDS ORDERED: HEPARIN SODIUM 250 ML IV SCH (02:45)
[2025-02-02] MEDS ORDERED: ASPIRIN 300 MG SUPP R ONE (02:50)
[2025-02-02] MEDS ORDERED: ACETAMINOPHEN 100 ML IV ONE (02:56)
[2025-02-02 06:21] LABS: BASO # 0.0 10*3/uL (0.0-0.1); BASO % 0.2 % (0.0-1.0); EOS # 0.0 10*3/uL (0.0-0.4); EOS % 0.0 % (1.0-4.0); MEAN CELL VOLUME 88.6 fl (81.0-99.0); MEAN CORPUSCULAR HGB 28.6 pg (27.0-31.0); MEAN PLATELET VOLUME 9.5 fl (9.6-12.3); MONO # 0.3 10*3/uL (0.1-1.0); MONO % 3.6 % (3.0-9.0); NEUT # 7.7 10*3/uL (2.3-7.9); NEUT % 82.8 % (47.0-73.0); NUCLEATED RED BLOOD CELL 0.0 % (0.0-0.0); NUCLEATED RED BLOOD CELL 0.0 10*3/uL (0.0-0.0); PLATELET COUNT AUTOMATED 292 10*3/uL (130-400); RED CELL DISTRI WIDTH 13.3 % (0-14.5)
[2025-02-02 07:01] LABS: BUN 11 mg/dl (9-23); SGPT/ALT 11 U/L (5-49)
[2025-02-02] MEDS ORDERED: Technetium Tc 99M Tetrofosmi 0.23 MG KIT IJ SCH (11:10)
[2025-02-03] VITALS: BP 156/60
[2025-02-03 05:59] LABS: BUN 10 mg/dl (9-23)
[2025-02-03] MEDS ORDERED: Pantoprazole Sodium 20 MG TAB PO SCH (06:00)
[2025-02-03] MEDS ORDERED: Propafenone Hydrochloride 150 MG TAB PO SCH (06:00)
[2025-02-03] MEDS ORDERED: Regadenoson 0.4 MG/5 ML SYR IV ONE (06:32)
[2025-02-03 08:00] VITALS: BP 175/51
[2025-02-03] MEDS ORDERED: LISINOPRIL 20 MG TAB PO SCH ×2 (10:00)
[2025-02-03] MEDS ORDERED: CARVEDILOL 6.25 MG TAB PO SCH ×2 (10:00)
[2025-02-03] MEDS ORDERED: ATORVASTATIN CALCIUM 20 MG TAB PO SCH ×2 (10:00→22:00)
[2025-02-03] MEDS ORDERED: Cholecalciferol 2,000 UNIT TABLET (50 MCG) PO SCH (10:00)
[2025-02-03 11:37] VITALS: BP 165/59
[2025-02-03] MEDS ORDERED: IOHEXOL 350 MG/ML 100 ML VIAL IV ONE ×2 (12:20→12:42)
[2025-02-03] MEDS ORDERED: SODIUM CHLORIDE 0.9% 100 ML BAG IV ONE (12:20)
[2025-02-03] MEDS ORDERED: SODIUM CHLORIDE 0.9% 100 ML IV ONE (12:42)
[2025-02-03] MEDS ORDERED: LOSARTAN POTASS50 M1 PO ×2 (14:34→17:35)
[2025-02-03 16:00] VITALS: BP 151/61
== END 2025-02-03 17:40 | disposition home health service (06) | DRG 103 ==
LOC: ED 21:30 → 5E 02-02 00:44 → EDHOLD 02-02 00:44 → 5E 02-02 01:42 → 4E 02-02 17:56
PROVIDERS: Nurse Practitioner Family; Student in an Organized Health Care Education/Training Program; ADMIT Student in an Organized Health Care Education/Training Program; ATTEND Student in an Organized Health Care Education/Training Program
PROC: 4A02XM4 Measurement of Cardiac Total Activity, External Approach (ICD-10-PCS; principal; 2025-02-03)
PROC: 3E073KZ Introduction of Other Diagnostic Substance into Coronary Artery, Percutaneous Approach (ICD-10-PCS; 2025-02-03)
DX: G43.909 Migraine, unspecified, not intractable, without status migrainosus (principal); I48.0 Paroxysmal atrial fibrillation; R94.31 Abnormal electrocardiogram [ECG] [EKG]; E78.5 Hyperlipidemia, unspecified; N18.30 Chronic kidney disease, stage 3 unspecified; J45.909 Unspecified asthma, uncomplicated; R73.9 Hyperglycemia, unspecified; I12.9 Hypertensive chronic kidney disease with stage 1 through stage 4 chronic kidney disease, or unspecified chronic kidney disease; E03.9 Hypothyroidism, unspecified; Z79.899 Other long term (current) drug therapy; Z79.01 Long term (current) use of anticoagulants; Z79.2 Long term (current) use of antibiotics; Z88.8 Allergy status to other drugs, medicaments and biological substances; Z91.09 Other allergy status, other than to drugs and biological substances; Z98.42 Cataract extraction status, left eye; Z98.41 Cataract extraction status, right eye; Z82.5 Family history of asthma and other chronic lower respiratory diseases; Z83.3 Family history of diabetes mellitus; Z82.49 Family history of ischemic heart disease and other diseases of the circulatory system; Z84.19 Family history of other disorders of kidney and ureter; Z95.0 Presence of cardiac pacemaker